=== PATIENT | female | born 1945 | race Caucasian/White ===

== ENCOUNTER 2017-04-11 09:07 | Day surgery (SDC) | payer BC ==
[2017-04-11] MEDS ORDERED: Lactated Ringers 1,000 ML IV SCH (09:15)
[2017-04-11] MEDS ORDERED: Lidocaine 2% 100 MG/5 ML Syringe IVPUSH ONE (10:45)
[2017-04-11] MEDS ORDERED: Propofol 200 MG/20 ML SDV IV ONE (10:45)
[2017-04-11] MEDS ORDERED: Midazolam 1 MG/ML 2 ML SDV IV ONE (10:45)
--- NOTE | 2017-04-11 11:10 | PCM.OPNOTE ---
- General Post-Op/Procedure Note Date of Surgery/Procedure: 04/11/17 Operative Procedure(s): egd with bx Findings: erosive esophagitis fundic gland hyperplasia Pre Op Diagnosis: dysphagia Post-Op Diagnosis: erosive esophagitis. fundic gland hyperplasia Anesthesia Technique: MAC Primary Surgeon: Guy Collins Anesthesia Provider: Johan Hunter Pathology: gastric polyps distal esophagus Complications: None Condition: Good Free Text/Narrative:: see dictation
--- NOTE | 2017-04-11 12:24 | OR ---
DATE OF OPERATION: 04/11/2017 SURGEON: Guy Collins MD PROCEDURE PERFORMED: Esophagogastroduodenoscopy with cold forceps biopsy. PREOPERATIVE DIAGNOSIS: Dysphagia. POSTOPERATIVE DIAGNOSIS: Erosive esophagitis and gastric polyps. INDICATIONS FOR PROCEDURE: This is a 71-year-old white female, who is referred with worsening dysphagia. She was offered and accepted an EGD. DESCRIPTION OF PROCEDURE: After an excellent IV sedation was administered, the bite block was inserted. The flexible endoscope was passed without difficulty down the patient's esophagus into the stomach. The stomach was insufflated, scope was passed through the pylorus to the second portion of duodenum, and slowly withdrawn. The following findings were noted. Duodenum was unremarkable. Stomach demonstrated diffuse fundic gland hyperplasia. Horse Buyer biopsies were taken. A small hiatal hernia was noted. The patient was noted to have erosive esophagitis, ulceration, and multiple circumferential biopsies were taken. The stomach was deflated, scope was removed. The patient tolerated the procedure well and was taken to recovery in good condition. /[id number] /MODL
[2017-04-11 14:40] VITALS: BP 126/66
== END 2017-04-11 12:43 | disposition home or self-care (01) ==
LOC: FB.SDS 09:07
PROVIDERS: ATTEND Surgery
DX: K31.7 Polyp of stomach and duodenum (principal); K22.10 Ulcer of esophagus without bleeding; K44.9 Diaphragmatic hernia without obstruction or gangrene; E03.9 Hypothyroidism, unspecified; F41.9 Anxiety disorder, unspecified; F32.9 Major depressive disorder, single episode, unspecified; E78.5 Hyperlipidemia, unspecified; Z88.2 Allergy status to sulfonamides; Z79.899 Other long term (current) drug therapy; Z98.890 Other specified postprocedural states
CPT/HCPCS: 43239; 88305; 88312; 88313; 88342; J2250; J2704; J7120

== ENCOUNTER 2018-06-01 18:48 | Emergency (ER) | payer BC ==
[2018-06-01] MEDS ORDERED: Morphine 10 MG/ML Syringe IM ONE (19:44)
[2018-06-01] MEDS ORDERED: diazePAM 5 MG/ML MDV IM ONE (19:44)
--- NOTE | 2018-06-01 19:59 | EDM.PDOC ---
ED HPI GENERAL MEDICAL PROBLEM - General Chief Complaint: Back Pain or Injury Stated Complaint: SCIATICA PAIN Time Seen by Provider: 06/01/18 19:54 Source of Information: Reports: Patient History Limitations: Reports: No Limitations - History of Present Illness INITIAL COMMENTS - FREE TEXT/NARRATIVE: Amy is a 72-year-old female with pain in the low back after an injury. She was in a garage sale,and stepped off a dipped area, caught herself and immediately experienced significant low back pain. Pain radiates to the left,is moderate to severe and this happened around noon.Amy has a history of chronic sciatic pain for which she goes to chiropractor. She has not taken anything today for the pain Lower back & L lower leg to L knee Pain Score (Numeric/FACES): 10 - Related Data Allergies Allergy/AdvReac Type Severity Reaction Status Date / Time Sulfa (Sulfonamide Allergy Cannot Verified 06/01/18 19:05 Antibiotics) Remember Home Meds: Home Meds Levothyroxine [Synthroid] 75 mcg PO DAILY 10/14/13 [History] Simvastatin [Zocor] 20 mg PO BEDTIME 10/14/13 [History] Venlafaxine [Effexor XR] 150 mg PO BEDTIME 10/14/13 [History] Omeprazole 40 mg PO DAILY 04/10/17 [History] Past Medical History HEENT History: Reports: None Cardiovascular History: Reports: High Cholesterol Respiratory History: Reports: Bronchitis, Recurrent, COPD, Pneumonia, Recurrent , Other (See Below) Other Respiratory History: LUNG SCARRING POST RADIATION Gastrointestinal History: Reports: GERD 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 History: Reports: Other (See Below) Other 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 History: DYSURIA 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 History: Reports: Other COLLAR CUTTER History: Musculoskeletal History: Reports: Arthritis, Back Pain, Chronic Neurological History: Reports: Other (See Below) Other Neuro History: SCIATICA, SLIPPED DISC PAIN Psychiatric History: Reports: Anxiety, Depression Endocrine/Metabolic History: Reports: Hypothyroidism, Other (See Below) Other Endocrine/Metabolic History: ABNORMAL GLUCOSE Hematologic History: Reports: None Immunologic History: Reports: None Oncologic (Cancer) History: Reports: Hodgkin's Lymphoma Dermatologic History: Reports: None - Infectious Disease History Infectious Disease History: Reports: Chicken Pox, Mumps - Past Surgical History Head Surgeries/Procedures: Reports: None HEENT Surgical History: Reports: None Cardiovascular Surgical History: Reports: None Respiratory Surgical History: Reports: None GI Surgical History: Reports: Colonoscopy, EGD Female Surgical History: Reports: Section Other Female Surgeries/Procedures: CS x 2 Neurological Surgical History: Reports: None Musculoskeletal Surgical History: Reports: Arthroscopic Knee, Knee Replacement Other Musculoskeletal Surgeries/Procedures:: L knee surgery, bilat joint surgery in feet Oncologic Surgical History: Reports: None Dermatological Surgical History: Reports: None Social & Family History - Family History Family Medical History: Noncontributory - Tobacco Use Smoking Status *Q: Never Smoker - Caffeine Use Caffeine Use: Reports: Coffee - Recreational Drug Use Recreational Drug Use: No ED ROS GENERAL - Review of Systems Review Of Systems: ROS reveals no pertinent complaints other than HPI. ED EXAM,LOWER BACK PAIN/INJURY - Physical Exam Exam: See Below Text/Narrative:: Amy appears to be in pain, exhibiting difficulty in ambulation.I noticed no deformity of the lumbar spine. There is significant tenderness in papaltion of the left paraspinal muscles, and the lumbar area and the spine has diminished range of motion. Straight leg raising test is unremarkable. She has normal strength in the next images, and deep tendon reflexes are brisk and symmetric. Exam Limited By: No Limitations General Appearance: Alert, WD/WN Course - Vital Signs Last Recorded V/S: Last Vital Signs Temp 97.0 F 06/01/18 19:00 Pulse 84 06/01/18 20:32 Resp 18 06/01/18 20:32 BP 135/99 H 06/01/18 20:32 Pulse Ox 97 06/01/18 20:32 - Orders/Labs/Meds Meds: Medications Discontinued Medications Generic Name Dose Route Start Last Admin Trade Name Radha PRN Reason Stop Dose Admin Diazepam 5 mg 06/01/18 19:44 06/01/18 20:03 Valium IM 06/01/18 19:45 5 mg ONETIME ONE Administration Hydromorphone HCl 2 mg 06/01/18 20:14 06/01/18 20:28 Dilaudid IM 06/01/18 20:15 2 mg ONETIME ONE Administration Morphine Sulfate 5 mg 06/01/18 19:44 06/01/18 20:02 Morphine IM 06/01/18 19:45 5 mg ONETIME ONE Administration Departure - Departure Time of Disposition: 21:04 Disposition: Home, Self-Care 01 Clinical Impression: Sciatica - Discharge Information Instructions: Sciatica Referrals: Lali Woods NP [Primary Care Provider] - 06/03/18 Forms: ED Department Discharge - Problem List & Annotations (1) Sciatica SNOMED Code(s): 35470416 Code(s): M54.30 - SCIATICA, UNSPECIFIED SIDE Status: Acute Current Visit : Yes Qualifiers: Laterality: left Qualified Code(s): M54.32 - Sciatica, left side - Problem List Review Problem List Initiated/Reviewed/Updated: Yes - Assessment/Plan Plan: I gave the patient Valium and morphine initially, 5 mg apiece but there was no improvement. And then given 2 mg of IM Dilaudid. I eventually sent home on Toradol 10 mg 4 times a day, and flexeril 10 mg twice a day to start tomorrow. She should see PCP on Sunday
[2018-06-01] MEDS ORDERED: HYDROmorphone 2 MG/ML SDV IM ONE (20:14)
[2018-06-01] MEDS ORDERED: Ketorolac 10 MG Tab PO ONE (21:07)
[2018-06-01] MEDS ORDERED: Cyclobenzaprine 10 MG Tab PO ONE (21:07)
[2018-06-01 22:22] VITALS: BP 119/79
== END 2018-06-01 21:28 | disposition home or self-care (01) ==
LOC: FB.ED 18:48
DX: M54.42 Lumbago with sciatica, left side (principal); J44.9 Chronic obstructive pulmonary disease, unspecified; Z88.2 Allergy status to sulfonamides; Z79.899 Other long term (current) drug therapy
CPT/HCPCS: 96372; 99283; A9270; J1170; J2270

== ENCOUNTER 2018-06-19 20:09 | Observation (INO) | payer BC ==
--- NOTE | 2018-06-19 21:31 | EDM.PDOC ---
ED HPI GENERAL MEDICAL PROBLEM - General Chief Complaint: Abdominal Pain Stated Complaint: POSS BOWEL OBSTRUCTION PER PT Time Seen by Provider: 06/19/18 20:50 Source of Information: Reports: Patient History Limitations: Reports: No Limitations - History of Present Illness INITIAL COMMENTS - FREE TEXT/NARRATIVE: Disposition very gone. Nonsmoking. 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 prednisone was started 5 days ago. Was started on oxycodone to go but stopped taking the oxycodone 6-8 days ago. And now is taking gabapentin for pain 300 mg 3 times a day this decreases the pain didn't does not resolve the pain. Her last BM was 3 days ago and she has had 2 days of loose stools. She has baseline chronic abdominal pain but she thinks abdominal pain is slightly increased. She's never had problems with abdominal pain from her Hodgkin's lymphoma. Her daughter is a nurse and gave her 2 enemas one at 6:15 and 7:00 thinking that she had constipation. She has not tried Sulfate. She has dyslipidemia, GERD, depression, erosive esophagitis treated, hypothyroidism treated. - Related Data Allergies Allergy/AdvReac Type Severity Reaction Status Date / Time baclofen Allergy Nausea and Verified 06/19/18 20:37 Vomiting Sulfa (Sulfonamide Allergy Cannot Verified 06/19/18 20:37 Antibiotics) Remember Home Meds: Home Meds Levothyroxine [Synthroid] 75 mcg PO DAILY 10/14/13 [History] Simvastatin [Zocor] 20 mg PO BEDTIME 10/14/13 [History] Venlafaxine [Effexor XR] 150 mg PO BEDTIME 10/14/13 [History] Omeprazole 40 mg PO DAILY 04/10/17 [History] Past Medical History HEENT History: Reports: None Cardiovascular History: Reports: High Cholesterol Respiratory History: Reports: Bronchitis, Recurrent, COPD, Pneumonia, Recurrent , Other (See Below) Other Respiratory History: LUNG SCARRING POST RADIATION Gastrointestinal History: Reports: GERD 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 History: Reports: Other (See Below) Other 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 History: DYSURIA MAT ROLLER History: Reports: Other MAT ROLLER History: Musculoskeletal History: Reports: Arthritis, Back Pain, Chronic Neurological History: Reports: Other (See Below) Other Neuro History: SCIATICA, SLIPPED DISC PAIN Psychiatric History: Reports: Anxiety, Depression Endocrine/Metabolic History: Reports: Hypothyroidism, Other (See Below) Other Endocrine/Metabolic History: ABNORMAL GLUCOSE Hematologic History: Reports: None Immunologic History: Reports: None Oncologic (Cancer) History: Reports: Hodgkin's Lymphoma Dermatologic History: Reports: None - Infectious Disease History Infectious Disease History: Reports: Chicken Pox, Mumps - Past Surgical History Head Surgeries/Procedures: Reports: None HEENT Surgical History: Reports: None Cardiovascular Surgical History: Reports: None Respiratory Surgical History: Reports: None GI Surgical History: Reports: Colonoscopy, EGD Female Surgical History: Reports: Section Other Female Surgeries/Procedures: CS x 2 Neurological Surgical History: Reports: None Musculoskeletal Surgical History: Reports: Arthroscopic Knee, Knee Replacement Other Musculoskeletal Surgeries/Procedures:: L knee surgery, bilat joint surgery in feet Oncologic Surgical History: Reports: None Dermatological Surgical History: Reports: None Social & Family History - Family History Family Medical History: Noncontributory - Caffeine Use Caffeine Use: Reports: Coffee ED ROS GENERAL - Review of Systems Review Of Systems: See Below Constitutional: Reports: No Symptoms HEENT: Reports: No Symptoms Respiratory: Reports: No Symptoms, Cough, Other (Intermittent dry cough but she realizes this was from her Hodgkin's radiation overload) Cardiovascular: Reports: No Symptoms, Chest Pain Endocrine: Reports: No Symptoms GI/Abdominal: Reports: Abdominal Pain, Diarrhea, Distension, Nausea : Reports: No Symptoms Musculoskeletal: Reports: No Symptoms Skin: Reports: No Symptoms Neurological: Reports: No Symptoms Psychiatric: Reports: Depression Hematologic/Lymphatic: Reports: No Symptoms Immunologic: Reports: No Symptoms ED EXAM, GI/ABD - Physical Exam Exam: See Below Text/Narrative:: A very pleasant kind warm woman who is so happy to be alive after having been treated for her Hodgkin's lymphoma Exam Limited By: No Limitations General Appearance: Alert, WD/WN, Mild Distress Eyes: Bilateral: Normal Appearance Ears: Normal External Exam, Normal Canal Nose: Normal Inspection, Normal Mucosa Throat/Mouth: Normal Inspection, Normal Lips, Normal Teeth, Normal Oropharynx, Normal Voice, No Airway Compromise Head: Atraumatic, Normocephalic Neck: Normal Inspection, Other (Tracheal tug is noted O tracheal deviation) Respiratory/Chest: No Respiratory Distress, No Accessory Muscle Use, Chest Non- Tender, Rales, Other (Bilateral posterior 50% lung crackles and rales) Cardiovascular: Normal Peripheral Pulses, Regular Rate, Rhythm, No Edema, No Gallop, No Murmur, No Rub GI/Abdominal Exam: Normal Bowel Sounds, Guarding, Tender, Other (No splenomegaly no hepatomegaly no rebound no heel tap rebound, mild distention and mild bloating ball sounds are present slightly increased) (Female) Exam: Deferred Rectal (Female) Exam: Normal Exam, Normal Rectal Tone, Deferred, Other ( Hemoccult pending) Back Exam: Normal Inspection, Full Range of Motion Extremities: Normal Inspection, Normal Range of Motion, Normal Capillary Refill , Other (Left total knee replacement scar noted and healed) Neurological: Alert, Oriented, CN II-XII Intact, Normal Cognition, Normal Gait, Normal Reflexes, No Motor/Sensory Deficits Psychiatric: Normal Affect, Other (Very kind disposition) Skin Exam: Warm, Dry, Other (Slight hand he always called to skin no scleral icterus) Lymphatic: No Adenopathy Course - Vital Signs Last Recorded V/S: Last Vital Signs Temp 36.5 C 06/19/18 20:10 Pulse 99 06/19/18 20:10 Resp 16 06/19/18 20:10 BP 146/94 H 06/19/18 20:10 Pulse Ox 98 06/19/18 20:10 - Orders/Labs/Meds Orders: Active Orders 24 hr Category Date Time Status Abdomen Pelvis w Cont [CT] Stat Exams 06/19/18 21:38 Taken UA W/MICROSCOPIC [URIN] Urgent Lab 06/19/18 22:58 Ordered Sodium Chloride 0.9% [Normal Saline] 1,000 ml Med 06/19/18 22:00 Active IV ASDIRECTED Medication Orders Sodium Chloride (Normal Saline) 1,000 mls @ 250 mls/hr IV ASDIRECTED EMMANUELLE Last Admin: 06/19/18 22:05 Dose: 250 mls/hr Labs: Laboratory Tests 06/19/18 06/19/18 06/19/18 Range/Units 21:24 21:24 21:24 WBC 13.8 H (4.5-12.0) X10-3/uL RBC 5.23 H (3.23-5.20) x10(6)uL Hgb 13.2 (11.5-15.5) g/dL Hct 40.2 (30.0-51.3) % MCV 76.9 L (80-96) fL MCH 25.3 L (27.7-33.6) pg MCHC 32.9 (32.2-35.4) g/dL RDW 15.2 (11.5-15.5) % Plt Count 499 H (125-369) X10(3)uL MPV 8.3 (7.4-10.4) fL Add Manual Diff Yes Neutrophils % (Manual) 85 H (46-82) % Band Neutrophils % 2 (0-6) % Lymphocytes % (Manual) 6 L (13-37) % Monocytes % (Manual) 7 (4-12) % Microcytosis Few Sodium 139 (135-145) mmol/L Potassium 4.3 (3.5-5.3) mmol/L Chloride 99 L (100-110) mmol/L Carbon Dioxide 27 (21-32) mmol/L BUN 25 H (7-18) mg/dL Creatinine 1.4 H (0.55-1.02) mg/dL Est Cr Clr Drug Dosing TNP Estimated GFR (MDRD) 37 L (>60) BUN/Creatinine Ratio 17.9 (9-20) Glucose 128 H (80-116) mg/dL Lactic Acid 1.0 (0.4-2.2) mmol/L Calcium 9.0 (8.6-10.2) mg/dL Total Bilirubin 0.5 (0.1-1.3) mg/dL AST 13 (5-25) IU/L ALT 21 (12-36) U/L Alkaline Phosphatase 124 H (56-112) IU/L C-Reactive Protein (0.5-0.9) mg/dL Total Protein 8.3 H (6.0-8.0) g/dL Albumin 4.0 (3.2-4.6) g/dL Globulin 4.3 g/dL Albumin/Globulin Ratio 0.9 06/19/18 Range/Units 21:24 WBC (4.5-12.0) X10-3/uL RBC (3.23-5.20) x10(6)uL Hgb (11.5-15.5) g/dL Hct (30.0-51.3) % MCV (80-96) fL MCH (27.7-33.6) pg MCHC (32.2-35.4) g/dL RDW (11.5-15.5) % Plt Count (125-369) X10(3)uL MPV (7.4-10.4) fL Add Manual Diff Neutrophils % (Manual) (46-82) % Band Neutrophils % (0-6) % Lymphocytes % (Manual) (13-37) % Monocytes % (Manual) (4-12) % Microcytosis Sodium (135-145) mmol/L Potassium (3.5-5.3) mmol/L Chloride (100-110) mmol/L Carbon Dioxide (21-32) mmol/L BUN (7-18) mg/dL Creatinine (0.55-1.02) mg/dL Est Cr Clr Drug Dosing Estimated GFR (MDRD) (>60) BUN/Creatinine Ratio (9-20) Glucose (80-116) mg/dL Lactic Acid (0.4-2.2) mmol/L Calcium (8.6-10.2) mg/dL Total Bilirubin (0.1-1.3) mg/dL AST (5-25) IU/L ALT (12-36) U/L Alkaline Phosphatase (56-112) IU/L C-Reactive Protein < 0.2 L (0.5-0.9) mg/dL Total Protein (6.0-8.0) g/dL Albumin (3.2-4.6) g/dL Globulin g/dL Albumin/Globulin Ratio Meds: Medications Generic Name Dose Route Start Last Admin Trade Name Freq PRN Reason Stop Dose Admin Sodium Chloride 1,000 mls @ 250 mls/hr 06/19/18 22:00 06/19/18 22:05 Normal Saline IV 250 mls/hr ASDIRECTED EMMANUELLE Administration Discontinued Medications Generic Name Dose Route Start Last Admin Trade Name Freq PRN Reason Stop Dose Admin Hydromorphone HCl 0.5 mg 06/19/18 21:53 06/19/18 22:07 Dilaudid IVPUSH 06/19/18 21:54 0.5 mg ONETIME ONE Administration Iopamidol 75 ml 06/19/18 22:05 06/19/18 22:30 Isovue-370 (76%) IV 06/19/18 22:06 75 ml ONETIME ONE Administration Ondansetron HCl 4 mg 06/19/18 21:55 06/19/18 22:10 Zofran IVPUSH 06/19/18 21:56 4 mg ONETIME ONE Administration - Radiology Interpretation Free Text/Narrative:: : As filled with large volumes stool in the ascending colon dilated to 7 cm. Nix is normal large thickening the colon junction with the sigmoid colon and sigmoid and rectum. Transition N: Caliber near the di descending colon with her colonoscopy enema recommended to exclude colitis stricture or mass causing colonic obstruction.stal CT Results Date: 06/19/18 CT Results Time: 23:00 Departure - Departure Time of Disposition: 23:00 (Patient has possible stricture, mass, colitis, and the distal descending colon is large amount of stool with dilation to 7 cm in the ascending colon. She has mild leukocytosis with neutrophilia. No renal stones noted plan is to hospitalize IV antibiotics Cipro and Flagyl and use 10 mL of 10 ounces of magnesium citrate and to consult surgeon for colonoscopy.) Disposition: Admitted As Inpatient 66 Clinical Impression: Abnormal CT scan, sigmoid colon, Neutrophilic leukocytosis, Colitis, Stricture of colon, Colon cancer high risk Constipation Qualifiers: Constipation type: unspecified constipation type Qualified Code(s): K59.00 - Constipation, unspecified - Discharge Information *PRESCRIPTION DRUG MONITORING PROGRAM REVIEWED*: Not Applicable *COPY OF PRESCRIPTION DRUG MONITORING REPORT IN PATIENT BJ: Not Applicable Referrals: Lali Woods NP [Primary Care Provider] - Forms: ED Department Discharge - My Orders Last 24 Hours: My Active Orders 06/19/18 21:38 Abdomen Pelvis w Cont [CT] Stat 06/19/18 22:00 Sodium Chloride 0.9% [Normal Saline] 1,000 ml IV ASDIRECTED 06/19/18 22:58 UA W/MICROSCOPIC [URIN] Urgent - Assessment/Plan Last 24 Hours: My Active Orders 06/19/18 21:38 Abdomen Pelvis w Cont [CT] Stat 06/19/18 22:00 Sodium Chloride 0.9% [Normal Saline] 1,000 ml IV ASDIRECTED 06/19/18 22:58 UA W/MICROSCOPIC [URIN] Urgent
[2018-06-19] MEDS ORDERED: HYDROmorphone 2 MG/ML SDV IVPUSH ONE (21:53)
[2018-06-19] MEDS ORDERED: Ondansetron 4 MG/2 ML SDV IVPUSH ONE (21:55)
[2018-06-19] MEDS ORDERED: Sodium Chloride 0.9% 1,000 ML IV SCH (22:00)
[2018-06-19] MEDS ORDERED: Iopamidol 755 Mg/ML 75 ML Bottle IV ONE (22:05)
[2018-06-19] MEDS ORDERED: Bisacodyl 5 MG Tab PO PRN (23:30)
[2018-06-19] MEDS ORDERED: Acetaminophen/HYDROcodone 325-5 MG Tab PO PRN (23:30)
[2018-06-19] MEDS ORDERED: Acetaminophen 325 MG Tab PO PRN (23:30)
[2018-06-19] MEDS ORDERED: Ondansetron 4 MG Tab.DIS PO PRN (23:30)
[2018-06-19] MEDS ORDERED: Ciprofloxacin in D5W 200 MG in Premix Bag 1 BAG IV SCH ×2 (23:45)
[2018-06-20] MEDS: Enoxaparin 30 MG/0.3 ML Syringe SUBCUT SCH ×2 (00:25→22:39)
[2018-06-20] MEDS: metroNIDAZOLE/Normal Saline 500 MG in Premix Bag 1 BAG IV SCH ×2 (00:27→08:46)
[2018-06-20] MEDS ORDERED: Magnesium Citrate Solution 296 ML Bottle PO ONE (00:51)
[2018-06-20] MEDS ORDERED: Ondansetron 4 MG/2 ML SDV IVPUSH PRN (02:42)
[2018-06-20] MEDS: Sodium Chloride 0.9% 1,000 ML IV SCH ×2 (05:51→21:53)
[2018-06-20] MEDS: Levothyroxine 75 MCG Tab PO SCH (08:46)
[2018-06-20] MEDS: Pantoprazole 40 MG Tab.CR PO SCH (08:46)
--- NOTE | 2018-06-20 09:06 | PCM.HP ---
H&P History of Present Illness - General Date of Service: 06/20/18 Admit Problem/Dx: Admission Diagnosis/Problem Admission Diagnosis/Problem Abdominal pain in female History Limitations: Reports: No Limitations - History of Present Illness Initial Comments - Free Text/Narative: Abd Pain x a few hours.Generalized. Associated with gagging,early satiety, vomiting. Pain is severe. She has not passed stool for 2 days. Has a history of sciatica, and has been taking oxycodone last5 days ago. She denies any fever chills chest pain or shortness of breath. No urinary symptoms. She has a history of lymphoma years ago in remission, depression anxiety stable. whole abdomen Pain Score (Numeric/FACES): 8 - Related Data Allergies/Adverse Reactions: Allergies Allergy/AdvReac Type Severity Reaction Status Date / Time baclofen Allergy Nausea and Verified 06/19/18 20:37 Vomiting Sulfa (Sulfonamide Allergy Cannot Verified 06/19/18 20:37 Antibiotics) Remember Home Medications: Home Meds Levothyroxine [Synthroid] 75 mcg PO DAILY 10/14/13 [History] Simvastatin [Zocor] 20 mg PO BEDTIME 10/14/13 [History] Venlafaxine [Effexor XR] 150 mg PO BEDTIME 10/14/13 [History] Omeprazole 40 mg PO DAILY 04/10/17 [History] Past Medical History HEENT History: Reports: None Cardiovascular History: Reports: High Cholesterol Respiratory History: Reports: Bronchitis, Recurrent, COPD, Pneumonia, Recurrent , Other (See Below) Other Respiratory History: LUNG SCARRING POST RADIATION Gastrointestinal History: Reports: GERD 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 History: Reports: Other (See Below) Other 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 History: 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/BYN History: Musculoskeletal History: Reports: Arthritis, Back Pain, Chronic Neurological History: Reports: Other (See Below) Other Neuro History: SCIATICA, SLIPPED DISC PAIN Psychiatric History: Reports: Anxiety, Depression Endocrine/Metabolic History: Reports: Hypothyroidism, Other (See Below) Other Endocrine/Metabolic History: ABNORMAL GLUCOSE Hematologic History: Reports: None Immunologic History: Reports: None Oncologic (Cancer) History: Reports: Hodgkin's Lymphoma Dermatologic History: Reports: None - Infectious Disease History Infectious Disease History: Reports: Chicken Pox, Mumps - Past Surgical History Head Surgeries/Procedures: Reports: None HEENT Surgical History: Reports: None Cardiovascular Surgical History: Reports: None Respiratory Surgical History: Reports: None GI Surgical History: Reports: Colonoscopy, EGD Female Surgical History: Reports: Section Other Female Surgeries/Procedures: CS x 2 Neurological Surgical History: Reports: None Musculoskeletal Surgical History: Reports: Arthroscopic Knee, Knee Replacement Other Musculoskeletal Surgeries/Procedures:: L knee surgery, bilat joint surgery in feet; silicon replacement both big toes Oncologic Surgical History: Reports: None Dermatological Surgical History: Reports: None Social & Family History - Family History Family Medical History: Noncontributory - Tobacco Use Smoking Status *Q: Never Smoker Second Hand Smoke Exposure: No - Caffeine Use Caffeine Use: Reports: Coffee Other Caffeine Use: 7-8 cups - Recreational Drug Use Recreational Drug Use: No H&P Review of Systems - Review of Systems: Review Of Systems: ROS reveals no pertinent complaints other than HPI. Exam - Exam Exam: See Below - Vital Signs Vital Signs: Last Vital Signs Temp 96.9 F 06/19/18 23:40 Pulse 86 06/19/18 23:40 Resp 18 06/19/18 23:40 BP 144/89 H 06/19/18 23:40 Pulse Ox 98 06/19/18 23:40 Weight: 57.516 kg - Exam General: Alert HEENT: PERRLA Neck: Supple Lungs: Clear to Auscultation Cardiovascular: Regular Rate GI/Abdominal Exam: Normal Bowel Sounds, Distended, Tender (Female) Exam: Deferred Rectal (Female) Exam: Deferred Back Exam: Normal Inspection Extremities: Normal Inspection Skin: Warm, Dry, Intact Neurological: Cranial Nerves Intact, Reflexes Equal Bilateral Neuro Extensive - Mental Status: Alert, Oriented x3, Normal Mood/Affect, Normal Cognition Neuro Extensive - Motor, Sensory, Reflexes: CN II-XII Intact, Normal Gait, Normal Reflexes - Patient Data Lab Results Last 24 hrs: Laboratory Results - last 24 hr 06/19/18 06/19/18 06/19/18 Range/Units 21:24 21:24 21:24 WBC 13.8 H (4.5-12.0) X10-3/uL RBC 5.23 H (3.23-5.20) x10(6)uL Hgb 13.2 (11.5-15.5) g/dL Hct 40.2 (30.0-51.3) % MCV 76.9 L (80-96) fL MCH 25.3 L (27.7-33.6) pg MCHC 32.9 (32.2-35.4) g/dL RDW 15.2 (11.5-15.5) % Plt Count 499 H (125-369) X10(3)uL MPV 8.3 (7.4-10.4) fL Add Manual Diff Yes Neutrophils % (Manual) 85 H (46-82) % Band Neutrophils % 2 (0-6) % Lymphocytes % (Manual) 6 L (13-37) % Monocytes % (Manual) 7 (4-12) % Microcytosis Few PT (8.7-11.1) INR (0.89-1.13) APTT (24.4-33.2) SECONDS Sodium 139 (135-145) mmol/L Potassium 4.3 (3.5-5.3) mmol/L Chloride 99 L (100-110) mmol/L Carbon Dioxide 27 (21-32) mmol/L BUN 25 H (7-18) mg/dL Creatinine 1.4 H (0.55-1.02) mg/dL Est Cr Clr Drug Dosing TNP Estimated GFR (MDRD) 37 L (>60) BUN/Creatinine Ratio 17.9 (9-20) Glucose 128 H (80-116) mg/dL Lactic Acid 1.0 (0.4-2.2) mmol/L Calcium 9.0 (8.6-10.2) mg/dL Magnesium (1.8-2.5) mg/dL Total Bilirubin 0.5 (0.1-1.3) mg/dL AST 13 (5-25) IU/L ALT 21 (12-36) U/L Alkaline Phosphatase 124 H (56-112) IU/L C-Reactive Protein (0.5-0.9) mg/dL Total Protein 8.3 H (6.0-8.0) g/dL Albumin 4.0 (3.2-4.6) g/dL Globulin 4.3 g/dL Albumin/Globulin Ratio 0.9 Urine Color (YELLOW) Urine Appearance (CLEAR) Urine pH (5.0-6.5) Ur Specific [place] (1.010-1.025) Urine Protein (NEGATIVE) mg/dL Urine Glucose (UA) (NEGATIVE) mg/dL Urine Ketones (NEGATIVE) mg/dL Urine Occult Blood (NEGATIVE) Urine Nitrite (NEGATIVE) Urine Bilirubin (NEGATIVE) Urine Urobilinogen (NEGATIVE) mg/dL Ur Leukocyte Esterase (NEGATIVE) Urine RBC (0) Urine WBC (0) Ur Squamous Epith Cells (NS,R,O) Urine Bacteria (NS) 06/19/18 06/19/18 06/20/18 Range/Units 21:24 23:28 06:10 WBC (4.5-12.0) X10-3/uL RBC (3.23-5.20) x10(6)uL Hgb (11.5-15.5) g/dL Hct (30.0-51.3) % MCV (80-96) fL MCH (27.7-33.6) pg MCHC (32.2-35.4) g/dL RDW (11.5-15.5) % Plt Count (125-369) X10(3)uL MPV (7.4-10.4) fL Add Manual Diff Neutrophils % (Manual) (46-82) % Band Neutrophils % (0-6) % Lymphocytes % (Manual) (13-37) % Monocytes % (Manual) (4-12) % Microcytosis PT 10.4 (8.7-11.1) INR 1.07 (0.89-1.13) APTT 26.0 (24.4-33.2) SECONDS Sodium (135-145) mmol/L Potassium (3.5-5.3) mmol/L Chloride (100-110) mmol/L Carbon Dioxide (21-32) mmol/L BUN (7-18) mg/dL Creatinine (0.55-1.02) mg/dL Est Cr Clr Drug Dosing Estimated GFR (MDRD) (>60) BUN/Creatinine Ratio (9-20) Glucose (80-116) mg/dL Lactic Acid (0.4-2.2) mmol/L Calcium (8.6-10.2) mg/dL Magnesium (1.8-2.5) mg/dL Total Bilirubin (0.1-1.3) mg/dL AST (5-25) IU/L ALT (12-36) U/L Alkaline Phosphatase (56-112) IU/L C-Reactive Protein < 0.2 L (0.5-0.9) mg/dL Total Protein (6.0-8.0) g/dL Albumin (3.2-4.6) g/dL Globulin g/dL Albumin/Globulin Ratio Urine Color [place] (YELLOW) Urine Appearance Clear (CLEAR) Urine pH 5.0 (5.0-6.5) Ur Specific [place] 1.020 (1.010-1.025) Urine Protein Negative (NEGATIVE) mg/dL Urine Glucose (UA) Normal (NEGATIVE) mg/dL Urine Ketones Negative (NEGATIVE) mg/dL Urine Occult Blood Negative (NEGATIVE) Urine Nitrite Negative (NEGATIVE) Urine Bilirubin Small H (NEGATIVE) Urine Urobilinogen 4 H (NEGATIVE) mg/dL Ur Leukocyte Esterase Negative (NEGATIVE) Urine RBC 0-5 (0) Urine WBC 0-5 (0) Ur Squamous Epith Cells Rare (NS,R,O) Urine Bacteria Few H (NS) 06/20/18 Range/Units 06:10 WBC (4.5-12.0) X10-3/uL RBC (3.23-5.20) x10(6)uL Hgb (11.5-15.5) g/dL Hct (30.0-51.3) % MCV (80-96) fL MCH (27.7-33.6) pg MCHC (32.2-35.4) g/dL RDW (11.5-15.5) % Plt Count (125-369) X10(3)uL MPV (7.4-10.4) fL Add Manual Diff Neutrophils % (Manual) (46-82) % Band Neutrophils % (0-6) % Lymphocytes % (Manual) (13-37) % Monocytes % (Manual) (4-12) % Microcytosis PT (8.7-11.1) INR (0.89-1.13) APTT (24.4-33.2) SECONDS Sodium (135-145) mmol/L Potassium (3.5-5.3) mmol/L Chloride (100-110) mmol/L Carbon Dioxide (21-32) mmol/L BUN (7-18) mg/dL Creatinine (0.55-1.02) mg/dL Est Cr Clr Drug Dosing Estimated GFR (MDRD) (>60) BUN/Creatinine Ratio (9-20) Glucose (80-116) mg/dL Lactic Acid (0.4-2.2) mmol/L Calcium (8.6-10.2) mg/dL Magnesium 2.5 (1.8-2.5) mg/dL Total Bilirubin (0.1-1.3) mg/dL AST (5-25) IU/L ALT (12-36) U/L Alkaline Phosphatase (56-112) IU/L C-Reactive Protein (0.5-0.9) mg/dL Total Protein (6.0-8.0) g/dL Albumin (3.2-4.6) g/dL Globulin g/dL Albumin/Globulin Ratio Urine Color (YELLOW) Urine Appearance (CLEAR) Urine pH (5.0-6.5) Ur Specific [place] (1.010-1.025) Urine Protein (NEGATIVE) mg/dL Urine Glucose (UA) (NEGATIVE) mg/dL Urine Ketones (NEGATIVE) mg/dL Urine Occult Blood (NEGATIVE) Urine Nitrite (NEGATIVE) Urine Bilirubin (NEGATIVE) Urine Urobilinogen (NEGATIVE) mg/dL Ur Leukocyte Esterase (NEGATIVE) Urine RBC (0) Urine WBC (0) Ur Squamous Epith Cells (NS,R,O) Urine Bacteria (NS) Result Diagrams: 06/19/18 21:24 06/19/18 21:24 Collin Results Last 24 hrs: Microbiology 06/19/18 21:00 Stool Occult Blood (COLLIN) - Final Stool / Feces NEGATIVE OCCULT BLOOD - Problem List (1) Constipation SNOMED Code(s): 60075657 ICD Code: K59.00 - CONSTIPATION, UNSPECIFIED Status: Acute Current Visit : Yes Qualifiers: Constipation type: unspecified constipation type Qualified Code(s): K59.00 - Constipation, unspecified (2) Sciatica SNOMED Code(s): 90127283 ICD Code: M54.30 - SCIATICA, UNSPECIFIED SIDE Status: Acute Current Visit : No Qualifiers: Laterality: left Qualified Code(s): M54.32 - Sciatica, left side Problem List Initiated/Reviewed/Updated: Yes Orders Last 24hrs: Active Orders 24 hr Category Date Time Status Patient Status [ADT] Routine ADT 06/19/18 23:30 Active Ambulate [RC] ASDIRECTED Care 06/19/18 23:30 Active May Shower [RC] ASDIRECTED Care 06/19/18 23:30 Active Notify Provider Vital Signs [RC] ASDIRECTED Care 06/19/18 23:35 Active Oxygen Therapy [RC] PRN Care 06/19/18 23:30 Active Up With Assistance [RC] ASDIRECTED Care 06/19/18 23:30 Inactive Up ad Sindy [RC] ASDIRECTED Care 06/19/18 23:30 Active Up to Chair [RC] ASDIRECTED Care 06/19/18 23:30 Active VTE/DVT Education [RC] Per Unit Routine Care 06/19/18 23:30 Active Vital Signs [RC] 08,16,00 Care 06/19/18 23:30 Active Abdomen Pelvis w Cont [CT] Stat Exams 06/19/18 21:38 Taken Acetaminophen [Tylenol] Med 06/19/18 23:30 Active 650 mg PO Q4H PRN Acetaminophen/HYDROcodone [[place] 325-5 MG] Med 06/19/18 23:30 Active 1 tab PO Q4H PRN Bisacodyl [Dulcolax] Med 06/19/18 23:30 Active 5 mg PO DAILY PRN Ciprofloxacin in D5W [Cipro in D5W 200 MG/100 ML] 200 Med 06/19/18 23:45 Active mg Premix Bag 1 bag IV Q12H Enoxaparin [Lovenox] Med 06/19/18 23:30 Active 30 mg SUBCUT Q24H Ibuprofen [Motrin] Med 06/19/18 23:30 Active 600 mg PO Q6H PRN Levothyroxine Med 06/20/18 06:00 Active 75 mcg PO DAILY@0600 Ondansetron [Zofran ODT] Med 06/19/18 23:30 Active 4 mg PO Q6H PRN Ondansetron [Zofran] Med 06/20/18 02:42 Active 4 mg IVPUSH Q6H PRN Pantoprazole [ProTONIX] Med 06/20/18 07:30 Active 40 mg PO ACBREAKFAST Simvastatin [Zocor] Med 06/20/18 21:00 Active 20 mg PO BEDTIME Sodium Chloride 0.9% [Normal Saline] 1,000 ml Med 06/19/18 22:00 Active IV ASDIRECTED Sodium Chloride 0.9% [Normal Saline] 1,000 ml Med 06/19/18 23:45 Active IV ASDIRECTED Venlafaxine [Effexor XR] Med 06/20/18 21:00 Active 150 mg PO BEDTIME metroNIDAZOLE/Normal Saline [Flagyl 500 MG in NS 100 ML Med 06/19/18 23:45 Active ] 500 mg Premix Bag 1 bag IV Q8H Resuscitation Status Routine Resus Stat 06/19/18 23:30 Ordered Medication Orders Acetaminophen (Tylenol) 650 mg PO Q4H PRN PRN Reason: Pain (Mild 1-3)/fever Hydrocodone Bitart/Acetaminophen ([place] 325-5 Mg) 1 tab PO Q4H PRN PRN Reason: Pain (moderate 4-6) Last Admin: 06/20/18 00:23 Dose: 1 tab Bisacodyl (Dulcolax) 5 mg PO DAILY PRN PRN Reason: Constipation Last Admin: 06/20/18 00:24 Dose: 5 mg Enoxaparin Sodium (Lovenox) 30 mg SUBCUT Q24H [facility] Last Admin: 06/20/18 00:25 Dose: 30 mg Sodium Chloride (Normal Saline) 1,000 mls @ 250 mls/hr IV ASDIRECTED [facility] Last Admin: 06/19/18 22:05 Dose: 250 mls/hr Ciprofloxacin/Dextrose 200 mg/ (Premix) 100 mls @ 100 mls/hr IV Q12H [facility] Last Admin: 06/20/18 01:51 Dose: 100 mls/hr Metronidazole 500 mg/ Premix 100 mls @ 100 mls/hr IV Q8H [facility] Last Admin: 06/20/18 08:46 Dose: 100 mls/hr Infusion: 06/20/18 01:27 Dose: 100 mls/hr Admin: 06/20/18 00:27 Dose: 100 mls/hr Sodium Chloride (Normal Saline) 1,000 mls @ 125 mls/hr IV ASDIRECTED [facility] Last Admin: 06/20/18 05:51 Dose: 125 mls/hr Ibuprofen (Motrin) 600 mg PO Q6H PRN PRN Reason: Pain (mild 1-3) Levothyroxine Sodium (Levothyroxine) 75 mcg PO DAILY@0600 [facility] Last Admin: 06/20/18 08:46 Dose: 75 mcg Ondansetron HCl (Zofran Odt) 4 mg PO Q6H PRN PRN Reason: nausea, able to take PO Last Admin: 06/20/18 00:25 Dose: 4 mg Ondansetron HCl (Zofran) 4 mg IVPUSH Q6H PRN PRN Reason: Nausea/Vomiting Last Admin: 06/20/18 03:03 Dose: 4 mg Pantoprazole Sodium (Protonix) 40 mg PO ACBREAKFAST EMMANULELE Last Admin: 06/20/18 08:46 Dose: 40 mg Simvastatin (Zocor) 20 mg PO BEDTIME EMMANUELLE Venlafaxine HCl (Effexor Xr) 150 mg PO BEDTIME EMMANUELLE Assessment/Plan Comment:: The CT does show a transition point even though there is ahigh amount of stool. I will keep her nothing by mouth and consult Dr. Collins.Replace Fluids
--- NOTE | 2018-06-20 09:58 | PCM.CONS ---
H&P History of Present Illness - General Date of Service: 06/20/18 Admit Problem/Dx: Admission Diagnosis/Problem Admission Diagnosis/Problem Abdominal pain in female Source of Information: Patient, Old Records - History of Present Illness Initial Comments - Free Text/Narative: 72 yo serge who apparently has been on narcotics for back pain over the past few weeks. Has had issues with abd pain, and distention. This has gotten worse over the past week. Her last bowel movement was 3 days ago and she does not recall when she last passed gas. Had a enema yesterday and had no return of stool. CT scan in the ED demonstrated marked amount of stool in the colon with what appeared to be a cut off at he distal descending colon. She had an attempt at a c scope in 2013, this was incomplete due to poor prep and she has not presented for follow up exam in this regard. whole abdomen Pain Score (Numeric/FACES): 8 - Related Data Allergies/Adverse Reactions: Allergies Allergy/AdvReac Type Severity Reaction Status Date / Time baclofen Allergy Nausea and Verified 06/19/18 20:37 Vomiting Sulfa (Sulfonamide Allergy Cannot Verified 06/19/18 20:37 Antibiotics) Remember Home Medications: Home Meds Levothyroxine [Synthroid] 75 mcg PO DAILY 10/14/13 [History] Simvastatin [Zocor] 20 mg PO BEDTIME 10/14/13 [History] Venlafaxine [Effexor XR] 150 mg PO BEDTIME 10/14/13 [History] Omeprazole 40 mg PO DAILY 04/10/17 [History] Past Medical History HEENT History: Reports: None Cardiovascular History: Reports: High Cholesterol Respiratory History: Reports: Bronchitis, Recurrent, COPD, Pneumonia, Recurrent , Other (See Below) Other Respiratory History: LUNG SCARRING POST RADIATION Gastrointestinal History: Reports: GERD 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 History: Reports: Other (See Below) 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: Musculoskeletal History: Reports: Arthritis, Back Pain, Chronic Neurological History: Reports: Other (See Below) Other Neuro History: SCIATICA, SLIPPED DISC PAIN Psychiatric History: Reports: Anxiety, Depression Endocrine/Metabolic History: Reports: Hypothyroidism, Other (See Below) Other Endocrine/Metabolic History: ABNORMAL GLUCOSE Hematologic History: Reports: None Immunologic History: Reports: None Oncologic (Cancer) History: Reports: Hodgkin's Lymphoma Dermatologic History: Reports: None - Infectious Disease History Infectious Disease History: Reports: Chicken Pox, Mumps - Past Surgical History Head Surgeries/Procedures: Reports: None HEENT Surgical History: Reports: None Cardiovascular Surgical History: Reports: None Respiratory Surgical History: Reports: None GI Surgical History: Reports: Colonoscopy, EGD Female Surgical History: Reports: Section Other Female Surgeries/Procedures: CS x 2 Neurological Surgical History: Reports: None Musculoskeletal Surgical History: Reports: Arthroscopic Knee, Knee Replacement Other Musculoskeletal Surgeries/Procedures:: L knee surgery, bilat joint surgery in feet; silicon replacement both big toes Oncologic Surgical History: Reports: None Dermatological Surgical History: Reports: None Social & Family History - Family History Family Medical History: Noncontributory - Tobacco Use Smoking Status *Q: Never Smoker Second Hand Smoke Exposure: No - Caffeine Use Caffeine Use: Reports: Coffee Other Caffeine Use: 7-8 cups - Recreational Drug Use Recreational Drug Use: No H&P Review of Systems - Review of Systems: Review Of Systems: See Below General: Reports: Fever, Chills Pulmonary: Reports: No Symptoms Cardiovascular: Reports: No Symptoms Gastrointestinal: Reports: Abdominal Pain, Constipation, Distension Exam - Exam Exam: See Below - Vital Signs Vital Signs: Last Vital Signs Temp 97.4 F 06/20/18 08:47 Pulse 87 06/20/18 08:47 Resp 16 06/20/18 08:47 BP 132/80 06/20/18 08:47 Pulse Ox 100 06/20/18 08:47 Weight: 57.516 kg - Exam General: Alert, Oriented, Cooperative Lungs: Clear to Auscultation, Normal Respiratory Effort Cardiovascular: Regular Rate, Regular Rhythm GI/Abdominal Exam: Distended, Abnormal Bowel Sounds. No: Guarding, Rigid, Rebound - Patient Data Lab Results Last 24 hrs: Laboratory Results - last 24 hr 06/19/18 06/19/18 06/19/18 Range/Units 21:24 21:24 21:24 WBC 13.8 H (4.5-12.0) X10-3/uL RBC 5.23 H (3.23-5.20) x10(6)uL Hgb 13.2 (11.5-15.5) g/dL Hct 40.2 (30.0-51.3) % MCV 76.9 L (80-96) fL MCH 25.3 L (27.7-33.6) pg MCHC 32.9 (32.2-35.4) g/dL RDW 15.2 (11.5-15.5) % Plt Count 499 H (125-369) X10(3)uL MPV 8.3 (7.4-10.4) fL Add Manual Diff Yes Neutrophils % (Manual) 85 H (46-82) % Band Neutrophils % 2 (0-6) % Lymphocytes % (Manual) 6 L (13-37) % Monocytes % (Manual) 7 (4-12) % Microcytosis Few PT (8.7-11.1) INR (0.89-1.13) APTT (24.4-33.2) SECONDS Sodium 139 (135-145) mmol/L Potassium 4.3 (3.5-5.3) mmol/L Chloride 99 L (100-110) mmol/L Carbon Dioxide 27 (21-32) mmol/L BUN 25 H (7-18) mg/dL Creatinine 1.4 H (0.55-1.02) mg/dL Est Cr Clr Drug Dosing TNP Estimated GFR (MDRD) 37 L (>60) BUN/Creatinine Ratio 17.9 (9-20) Glucose 128 H (80-116) mg/dL Lactic Acid 1.0 (0.4-2.2) mmol/L Calcium 9.0 (8.6-10.2) mg/dL Magnesium (1.8-2.5) mg/dL Total Bilirubin 0.5 (0.1-1.3) mg/dL AST 13 (5-25) IU/L ALT 21 (12-36) U/L Alkaline Phosphatase 124 H (56-112) IU/L C-Reactive Protein (0.5-0.9) mg/dL Total Protein 8.3 H (6.0-8.0) g/dL Albumin 4.0 (3.2-4.6) g/dL Globulin 4.3 g/dL Albumin/Globulin Ratio 0.9 Urine Color (YELLOW) Urine Appearance (CLEAR) Urine pH (5.0-6.5) Ur Specific [place] (1.010-1.025) Urine Protein (NEGATIVE) mg/dL Urine Glucose (UA) (NEGATIVE) mg/dL Urine Ketones (NEGATIVE) mg/dL Urine Occult Blood (NEGATIVE) Urine Nitrite (NEGATIVE) Urine Bilirubin (NEGATIVE) Urine Urobilinogen (NEGATIVE) mg/dL Ur Leukocyte Esterase (NEGATIVE) Urine RBC (0) Urine WBC (0) Ur Squamous Epith Cells (NS,R,O) Urine Bacteria (NS) 06/19/18 06/19/18 06/20/18 Range/Units 21:24 23:28 06:10 WBC (4.5-12.0) X10-3/uL RBC (3.23-5.20) x10(6)uL Hgb (11.5-15.5) g/dL Hct (30.0-51.3) % MCV (80-96) fL MCH (27.7-33.6) pg MCHC (32.2-35.4) g/dL RDW (11.5-15.5) % Plt Count (125-369) X10(3)uL MPV (7.4-10.4) fL Add Manual Diff Neutrophils % (Manual) (46-82) % Band Neutrophils % (0-6) % Lymphocytes % (Manual) (13-37) % Monocytes % (Manual) (4-12) % Microcytosis PT 10.4 (8.7-11.1) INR 1.07 (0.89-1.13) APTT 26.0 (24.4-33.2) SECONDS Sodium (135-145) mmol/L Potassium (3.5-5.3) mmol/L Chloride (100-110) mmol/L Carbon Dioxide (21-32) mmol/L BUN (7-18) mg/dL Creatinine (0.55-1.02) mg/dL Est Cr Clr Drug Dosing Estimated GFR (MDRD) (>60) BUN/Creatinine Ratio (9-20) Glucose (80-116) mg/dL Lactic Acid (0.4-2.2) mmol/L Calcium (8.6-10.2) mg/dL Magnesium (1.8-2.5) mg/dL Total Bilirubin (0.1-1.3) mg/dL AST (5-25) IU/L ALT (12-36) U/L Alkaline Phosphatase (56-112) IU/L C-Reactive Protein < 0.2 L (0.5-0.9) mg/dL Total Protein (6.0-8.0) g/dL Albumin (3.2-4.6) g/dL Globulin g/dL Albumin/Globulin Ratio Urine Color [place] (YELLOW) Urine Appearance Clear (CLEAR) Urine pH 5.0 (5.0-6.5) Ur Specific [place] 1.020 (1.010-1.025) Urine Protein Negative (NEGATIVE) mg/dL Urine Glucose (UA) Normal (NEGATIVE) mg/dL Urine Ketones Negative (NEGATIVE) mg/dL Urine Occult Blood Negative (NEGATIVE) Urine Nitrite Negative (NEGATIVE) Urine Bilirubin Small H (NEGATIVE) Urine Urobilinogen 4 H (NEGATIVE) mg/dL Ur Leukocyte Esterase Negative (NEGATIVE) Urine RBC 0-5 (0) Urine WBC 0-5 (0) Ur Squamous Epith Cells Rare (NS,R,O) Urine Bacteria Few H (NS) 06/20/18 Range/Units 06:10 WBC (4.5-12.0) X10-3/uL RBC (3.23-5.20) x10(6)uL Hgb (11.5-15.5) g/dL Hct (30.0-51.3) % MCV (80-96) fL MCH (27.7-33.6) pg MCHC (32.2-35.4) g/dL RDW (11.5-15.5) % Plt Count (125-369) X10(3)uL MPV (7.4-10.4) fL Add Manual Diff Neutrophils % (Manual) (46-82) % Band Neutrophils % (0-6) % Lymphocytes % (Manual) (13-37) % Monocytes % (Manual) (4-12) % Microcytosis PT (8.7-11.1) INR (0.89-1.13) APTT (24.4-33.2) SECONDS Sodium (135-145) mmol/L Potassium (3.5-5.3) mmol/L Chloride (100-110) mmol/L Carbon Dioxide (21-32) mmol/L BUN (7-18) mg/dL Creatinine (0.55-1.02) mg/dL Est Cr Clr Drug Dosing Estimated GFR (MDRD) (>60) BUN/Creatinine Ratio (9-20) Glucose (80-116) mg/dL Lactic Acid (0.4-2.2) mmol/L Calcium (8.6-10.2) mg/dL Magnesium 2.5 (1.8-2.5) mg/dL Total Bilirubin (0.1-1.3) mg/dL AST (5-25) IU/L ALT (12-36) U/L Alkaline Phosphatase (56-112) IU/L C-Reactive Protein (0.5-0.9) mg/dL Total Protein (6.0-8.0) g/dL Albumin (3.2-4.6) g/dL Globulin g/dL Albumin/Globulin Ratio Urine Color (YELLOW) Urine Appearance (CLEAR) Urine pH (5.0-6.5) Ur Specific [place] (1.010-1.025) Urine Protein (NEGATIVE) mg/dL Urine Glucose (UA) (NEGATIVE) mg/dL Urine Ketones (NEGATIVE) mg/dL Urine Occult Blood (NEGATIVE) Urine Nitrite (NEGATIVE) Urine Bilirubin (NEGATIVE) Urine Urobilinogen (NEGATIVE) mg/dL Ur Leukocyte Esterase (NEGATIVE) Urine RBC (0) Urine WBC (0) Ur Squamous Epith Cells (NS,R,O) Urine Bacteria (NS) Result Diagrams: 06/19/18 21:24 06/19/18 21:24 Rishi Results Last 24 hrs: Microbiology 06/19/18 21:00 Stool Occult Blood (RISHI) - Final Stool / Feces NEGATIVE OCCULT BLOOD Consult PN Assessment/Plan Procedures: Procedures ANESTH UPPER GI VISUALIZE (04/11/17) CT THORAX W/O & W/DYE (06/18/17) DIAGNOSTIC COLONOSCOPY (10/16/13) DX MAMMO INCL CAD BI (11/27/17) DX MAMMO INCL CAD UNI (11/28/17) EGD BIOPSY SINGLE/MULTIPLE (04/11/17) EMERGENCY DEPT VISIT (06/01/18) IMMUNOHISTO ANTB 1ST STAIN (04/11/17) MRI LUMBAR SPINE W/O DYE (07/24/17) SPECIAL STAINS GROUP 1 (04/11/17) SPECIAL STAINS GROUP 2 (04/11/17) THER/PROPH/DIAG INJ SC/IM (06/01/18) TISSUE EXAM BY PATHOLOGIST (04/11/17) ULTRASOUND BREAST COMPLETE (11/28/17) (1) Abnormal CT scan, sigmoid colon SNOMED Code(s): 325793448, 972981701 Code(s): R93.3 - ABNORMAL FINDINGS ON DX IMAGING OF PRT DIGESTIVE TRACT Current Visit: Yes Problem List Initiated/Reviewed/Updated: Yes My Orders Last 24 Hours: My Active Orders 06/20/18 09:51 Verify Patient Consent Obtain [RC] ASDIRECTED 06/20/18 09:52 Patient to Empty Bladder [RC] ASDIRECTED 06/20/18 Breakfast Nothing Per Oral Diet [DIET] Plan: will perform a flex sig to determine if she has an obstructive lesion. procedure and risks explained to the pt to include bleeding, infection, perforation. she asks us to proceed.
--- NOTE | 2018-06-20 10:36 | PCM.OPNOTE ---
- General Post-Op/Procedure Note Date of Surgery/Procedure: 06/20/18 Operative Procedure(s): flex sig Findings: scope to 50 cm stopped due to stool no obstruction noted at stool in rectum and sigmoid colon Pre Op Diagnosis: constipation ? narrowing a descending sigmoid junction Post-Op Diagnosis: narcotic induced constipation Anesthesia Technique: MAC Primary Surgeon: Guy Collins Anesthesia Provider: Myranda Marie Pathology: none Complications: None Condition: Good Free Text/Narrative:: Intake & Output 06/19/18 06/20/18 06/20/18 22:59 06:59 14:59 Intake Total 709 Balance 709 see dictation.
--- NOTE | 2018-06-20 11:13 | OR ---
DATE OF OPERATION: 06/20/2018 SURGEON: Guy Collins MD PROCEDURE PERFORMED: Flexible sigmoidoscopy. PREOPERATIVE DIAGNOSIS: Questionable narrowing stricture at the junction of the descending colon and sigmoid. POSTOPERATIVE DIAGNOSIS: Opioid-induced constipation. INDICATIONS FOR PROCEDURE: This is a 72-year-old white female who was admitted last night with history of abdominal distention and pain, was noted on CT scan to have a marked amount of stool on her ascending and transverse colon as well as descending colon with what appeared to be a cutoff point at the junction of the descending colon and the sigmoid. Tumor stricture could not be ruled out. The patient does have a recent history of low back pain and has been on narcotics, and she was offered and accepted a flexible sigmoidoscopy to evaluate to see if there was a tumor causing the obstruction. DESCRIPTION OF PROCEDURE: After an excellent IV sedation was administered, digital rectal exam was performed. No marked abnormality was noted. Flexible colonoscope was inserted and advanced to the descending colon at 50 cm. There was stool noted in the rectal vault, sigmoid, as well as descending colon, and the procedure was stopped at 50 cm due to the fact that we were encountering more stool. The following findings were noted: Descending colon, unremarkable. Sigmoid, unremarkable. Rectum and anus, unremarkable. There was no evidence of stricture or tumor noted as demonstrated on the CT scan. Her constipation appears to be secondary to her recent narcotic use. We are starting her on Amitiza as well as giving her soapsuds enema. /[id number] /MODL
[2018-06-20] MEDS: Lubiprostone 24 MCG Cap PO SCH ×2 (12:10→17:41)
[2018-06-20] MEDS: Gabapentin 300 MG Cap PO SCH ×2 (13:13→20:36)
[2018-06-20] MEDS: Ibuprofen 600 MG Tab PO PRN (14:56)
[2018-06-20] MEDS: Simvastatin 20 MG Tab PO SCH (20:36)
[2018-06-20] MEDS: Venlafaxine 150 MG Cap.ER PO SCH (20:36)
[2018-06-21] MEDS: Ibuprofen 600 MG Tab PO PRN (04:28)
[2018-06-21] MEDS: Levothyroxine 75 MCG Tab PO SCH (05:59)
[2018-06-21] MEDS: Sodium Chloride 0.9% 1,000 ML IV SCH (06:00)
[2018-06-21] MEDS: Lubiprostone 24 MCG Cap PO SCH ×2 (08:26→17:32)
[2018-06-21] MEDS: Pantoprazole 40 MG Tab.CR PO SCH (08:26)
[2018-06-21] MEDS: Gabapentin 300 MG Cap PO SCH ×3 (08:26→21:02)
--- NOTE | 2018-06-21 09:52 | PCM.SURGPN ---
- General Info Date of Service: 06/21/18 Functional Status: Reports: Ambulating - Review of Systems Gastrointestinal: Reports: Constipation, Flatus, Other (distention is better ) - Patient Data Vitals - Most Recent: Last Vital Signs Temp 97.9 F 06/20/18 11:15 Pulse 90 06/20/18 11:45 Resp 16 06/20/18 11:45 BP 141/80 H 06/20/18 11:45 Pulse Ox 98 06/20/18 11:45 Weight - Most Recent: 57.516 kg I&O - Last 24 Hours: Intake & Output 06/20/18 06/21/18 06/21/18 22:59 06:59 14:59 Intake Total 1032 979 Balance 1032 979 Lab Results Last 24 Hrs: Laboratory Results - last 24 hr 06/21/18 06/21/18 Range/Units 06:35 06:35 WBC 4.7 (4.5-12.0) X10-3/uL RBC 3.94 (3.23-5.20) x10(6)uL Hgb 9.8 L D (11.5-15.5) g/dL Hct 30.8 (30.0-51.3) % MCV 78.0 L (80-96) fL MCH 24.9 L (27.7-33.6) pg MCHC 31.9 L (32.2-35.4) g/dL RDW 15.4 (11.5-15.5) % Plt Count 306 (125-369) X10(3)uL MPV 8.4 (7.4-10.4) fL Neut % (Auto) 71.7 (46-82) % Lymph % (Auto) 14.4 (13-37) % [place] % (Auto) 8.4 (4-12) % Eos % (Auto) 5 (1.0-5.0) % Baso % (Auto) 1 (0-2) % Neut # (Auto) 3.4 (1.6-8.3) # Lymph # (Auto) 0.7 (0.6-5.0) # Rush # (Auto) 0.4 (0.0-1.3) # Eos # (Auto) 0.2 (0.0-0.8) # Baso # (Auto) 0.0 (0.0-0.2) # Sodium 142 (135-145) mmol/L Potassium 4.9 (3.5-5.3) mmol/L Chloride 108 D (100-110) mmol/L Carbon Dioxide 28 (21-32) mmol/L BUN 13 D (7-18) mg/dL Creatinine 1.0 (0.55-1.02) mg/dL Est Cr Clr Drug Dosing 42.06 mL/min Estimated GFR (MDRD) 55 L (>60) BUN/Creatinine Ratio 13.0 (9-20) Glucose 87 (80-116) mg/dL Calcium 8.1 L (8.6-10.2) mg/dL Total Bilirubin 0.4 (0.1-1.3) mg/dL AST 15 D (5-25) IU/L ALT 17 D (12-36) U/L Alkaline Phosphatase 89 (56-112) IU/L Total Protein 5.9 L (6.0-8.0) g/dL Albumin 2.7 L (3.2-4.6) g/dL Globulin 3.2 g/dL Albumin/Globulin Ratio 0.8 Med Orders - Current: Current Medications Acetaminophen (Tylenol) 650 mg PO Q4H PRN PRN Reason: Pain (Mild 1-3)/fever Last Admin: 06/20/18 20:32 Dose: 650 mg Hydrocodone Bitart/Acetaminophen (Tiona 325-5 Mg) 1 tab PO Q4H PRN PRN Reason: Pain (moderate 4-6) Last Admin: 06/20/18 00:23 Dose: 1 tab Bisacodyl (Dulcolax) 5 mg PO DAILY PRN PRN Reason: Constipation Last Admin: 06/20/18 00:24 Dose: 5 mg Enoxaparin Sodium (Lovenox) 30 mg SUBCUT Q24H [facility] Last Admin: 06/20/18 22:39 Dose: 30 mg Gabapentin (Neurontin) 300 mg PO TID [facility] Last Admin: 06/21/18 08:26 Dose: 300 mg Sodium Chloride (Normal Saline) 1,000 mls @ 250 mls/hr IV ASDIRECTED [facility] Last Admin: 06/19/18 22:05 Dose: 250 mls/hr Sodium Chloride (Normal Saline) 1,000 mls @ 125 mls/hr IV ASDIRECTED [facility] Last Admin: 10/05/18 06:00 Dose: 125 mls/hr Ibuprofen (Motrin) 600 mg PO Q6H PRN PRN Reason: Pain (mild 1-3) Last Admin: 06/21/18 04:28 Dose: 600 mg Levothyroxine Sodium (Levothyroxine) 75 mcg PO DAILY@0600 [facility] Last Admin: 06/21/18 05:59 Dose: 75 mcg Lubiprostone (Amitiza) 24 mcg PO BIDMEALS [facility] Last Admin: 06/21/18 08:26 Dose: 24 mcg Ondansetron HCl (Zofran Odt) 4 mg PO Q6H PRN PRN Reason: nausea, able to take PO Last Admin: 06/20/18 00:25 Dose: 4 mg Ondansetron HCl (Zofran) 4 mg IVPUSH Q6H PRN PRN Reason: Nausea/Vomiting Last Admin: 06/20/18 03:03 Dose: 4 mg Pantoprazole Sodium (Protonix) 40 mg PO ACBREAKFAST [facility] Last Admin: 06/21/18 08:26 Dose: 40 mg Simvastatin (Zocor) 20 mg PO BEDTIME [facility] Last Admin: 06/20/18 20:36 Dose: 20 mg Venlafaxine HCl (Effexor Xr) 150 mg PO BEDTIME [facility] Last Admin: 06/20/18 20:36 Dose: 150 mg Discontinued Medications Hydromorphone HCl (Dilaudid) 0.5 mg IVPUSH ONETIME ONE Stop: 06/19/18 21:54 Last Admin: 06/19/18 22:07 Dose: 0.5 mg Ciprofloxacin/Dextrose 200 mg/ (Premix) 100 mls @ 100 mls/hr IV Q12H [facility] Last Admin: 06/20/18 01:51 Dose: 100 mls/hr Metronidazole 500 mg/ Premix 100 mls @ 100 mls/hr IV Q8H [facility] Last Admin: 06/20/18 08:46 Dose: 100 mls/hr Iopamidol (Isovue-370 (76%)) 75 ml IV ONETIME ONE Stop: 06/19/18 22:06 Last Admin: 06/19/18 22:30 Dose: 75 ml Magnesium Citrate (Citrate Of Magnesia) 296 ml PO ONETIME ONE Stop: 06/20/18 00:52 Last Admin: 06/20/18 01:20 Dose: 296 ml Ondansetron HCl (Zofran) 4 mg IVPUSH ONETIME ONE Stop: 06/19/18 21:56 Last Admin: 06/19/18 22:10 Dose: 4 mg - Exam GI/Abdominal Exam: Soft, Non-Tender, No Distention - Problem List & Annotations (1) Abnormal CT scan, sigmoid colon SNOMED Code(s): 199537533, 598090711 Code(s): R93.3 - ABNORMAL FINDINGS ON DX IMAGING OF PRT DIGESTIVE TRACT Status: Acute Current Visit: Yes Annotation/Comment:: opiod induced constipation - Problem List Review Problem List Initiated/Reviewed/Updated: Yes - My Orders Last 24 Hours: Active Orders 24 hr Category Date Time Status Enema [RC] ASDIRECTED Care 06/20/18 10:28 Active Gabapentin [Neurontin] Med 06/20/18 14:00 Active 300 mg PO TID Lubiprostone [Amitiza] Med 06/20/18 12:00 Active 24 mcg PO BIDMEALS Simvastatin [Zocor] Med 06/20/18 21:00 Active 20 mg PO BEDTIME Venlafaxine [Effexor XR] Med 06/20/18 21:00 Active 150 mg PO BEDTIME Medication Orders Acetaminophen (Tylenol) 650 mg PO Q4H PRN PRN Reason: Pain (Mild 1-3)/fever Last Admin: 06/20/18 20:32 Dose: 650 mg Hydrocodone Bitart/Acetaminophen (Tiona 325-5 Mg) 1 tab PO Q4H PRN PRN Reason: Pain (moderate 4-6) Last Admin: 06/20/18 00:23 Dose: 1 tab Bisacodyl (Dulcolax) 5 mg PO DAILY PRN PRN Reason: Constipation Last Admin: 06/20/18 00:24 Dose: 5 mg Enoxaparin Sodium (Lovenox) 30 mg SUBCUT Q24H [facility] Last Admin: 06/20/18 22:39 Dose: 30 mg Admin: 06/20/18 00:25 Dose: 30 mg Gabapentin (Neurontin) 300 mg PO TID [facility] Last Admin: 06/21/18 08:26 Dose: 300 mg Admin: 06/20/18 20:36 Dose: 300 mg Admin: 06/20/18 13:13 Dose: 300 mg Sodium Chloride (Normal Saline) 1,000 mls @ 250 mls/hr IV ASDIRECTED [facility] Last Admin: 06/19/18 22:05 Dose: 250 mls/hr Sodium Chloride (Normal Saline) 1,000 mls @ 125 mls/hr IV ASDIRECTED [facility] Last Admin: 06/21/18 06:00 Dose: 125 mls/hr Infusion: 06/21/18 05:53 Dose: 125 mls/hr Admin: 06/20/18 21:53 Dose: 125 mls/hr Infusion: 06/20/18 13:51 Dose: 125 mls/hr Admin: 06/20/18 05:51 Dose: 125 mls/hr Ibuprofen (Motrin) 600 mg PO Q6H PRN PRN Reason: Pain (mild 1-3) Last Admin: 06/21/18 04:28 Dose: 600 mg Admin: 06/20/18 14:56 Dose: 600 mg Levothyroxine Sodium (Levothyroxine) 75 mcg PO DAILY@0600 [facility] Last Admin: 06/21/18 05:59 Dose: 75 mcg Admin: 06/20/18 08:46 Dose: 75 mcg Lubiprostone (Amitiza) 24 mcg PO BIDMEALS [facility] Last Admin: 06/21/18 08:26 Dose: 24 mcg Admin: 06/20/18 17:41 Dose: 24 mcg Admin: 06/20/18 12:10 Dose: 24 mcg Ondansetron HCl (Zofran Odt) 4 mg PO Q6H PRN PRN Reason: nausea, able to take PO Last Admin: 06/20/18 00:25 Dose: 4 mg Ondansetron HCl (Zofran) 4 mg IVPUSH Q6H PRN PRN Reason: Nausea/Vomiting Last Admin: 06/20/18 03:03 Dose: 4 mg Pantoprazole Sodium (Protonix) 40 mg PO ACBREAKFAST [facility] Last Admin: 06/21/18 08:26 Dose: 40 mg Admin: 06/20/18 08:46 Dose: 40 mg Simvastatin (Zocor) 20 mg PO BEDTIME [facility] Last Admin: 06/20/18 20:36 Dose: 20 mg Venlafaxine HCl (Effexor Xr) 150 mg PO BEDTIME [facility] Last Admin: 06/20/18 20:36 Dose: 150 mg - Assessment Assessment (Free Text/Narrative):: clinically better - Plan Plan (Free Text/Narrative):: would start diet miralax daily continue Amitiza. no further recommendations. will sign off.
[2018-06-21] MEDS: Polyethylene Glycol 3350 Powder 17 GM Packet PO SCH ×2 (11:10→21:04)
[2018-06-21] MEDS ORDERED: Magnesium Citrate Solution 296 ML Bottle PO ONE (11:23)
[2018-06-21] MEDS ORDERED: Sennosides 8.6 MG Tab PO PRN (11:25)
[2018-06-21] MEDS ORDERED: Polyethylene Glycol 3350 Powder 17 GM Packet PO PRN (11:26)
--- NOTE | 2018-06-21 11:33 | PCM.PN ---
- General Info Date of Service: 06/21/18 Admission Dx/Problem (Free Text): Patient is a 72-year-old female with a history of sciatica who had a severe flare about 2 or 3 weeks ago and was given a number of IV narcotics in the emergency department and then discharged home on oxycodone. She normally only has a bowel movement about every 3 days but soft and formed and easy to pass. She noticed she was having a little bit more difficulty passing her stools and the day of admission, 06/19, she developed a severe abdominal pain, distention, vomiting, fullness and feeling gaggy. She hadn't had a bowel movement for [address] scan showed lots of stool with a transition point and there was some concern about possible obstruction. The patient had a flexible sigmoidoscopy with Dr. Collins yesterday which showed only stool throughout the colon and no transition point. The patient has not yet had a bowel movement but is feeling better and having more movement of her bowels within her abdomen. Distention has improved. Pain is gone but she still feels a little bloated. She' s been walking in the halls and hearing bowel noises as well as passing gas. Functional Status: Reports: Pain Controlled, Ambulating - Patient Data Vitals - Most Recent: Last Vital Signs Temp 36.6 C 06/20/18 11:15 Pulse 90 06/20/18 11:45 Resp 16 06/20/18 11:45 BP 141/80 H 06/20/18 11:45 Pulse Ox 98 06/20/18 11:45 Weight - Most Recent: 57.516 kg I&O - Last 24 Hours: Intake & Output 06/20/18 06/21/18 06/21/18 22:59 06:59 14:59 Intake Total 1032 979 Balance 1032 979 Lab Results Last 24 Hours: Laboratory Results - last 24 hr 06/21/18 06/21/18 Range/Units 06:35 06:35 WBC 4.7 (4.5-12.0) X10-3/uL RBC 3.94 (3.23-5.20) x10(6)uL Hgb 9.8 L D (11.5-15.5) g/dL Hct 30.8 (30.0-51.3) % MCV 78.0 L (80-96) fL MCH 24.9 L (27.7-33.6) pg MCHC 31.9 L (32.2-35.4) g/dL RDW 15.4 (11.5-15.5) % Plt Count 306 (125-369) X10(3)uL MPV 8.4 (7.4-10.4) fL Neut % (Auto) 71.7 (46-82) % Lymph % (Auto) 14.4 (13-37) % [place] % (Auto) 8.4 (4-12) % Eos % (Auto) 5 (1.0-5.0) % Baso % (Auto) 1 (0-2) % Neut # (Auto) 3.4 (1.6-8.3) # Lymph # (Auto) 0.7 (0.6-5.0) # Dolores # (Auto) 0.4 (0.0-1.3) # Eos # (Auto) 0.2 (0.0-0.8) # Baso # (Auto) 0.0 (0.0-0.2) # Sodium 142 (135-145) mmol/L Potassium 4.9 (3.5-5.3) mmol/L Chloride 108 D (100-110) mmol/L Carbon Dioxide 28 (21-32) mmol/L BUN 13 D (7-18) mg/dL Creatinine 1.0 (0.55-1.02) mg/dL Est Cr Clr Drug Dosing 42.06 mL/min Estimated GFR (MDRD) 55 L (>60) BUN/Creatinine Ratio 13.0 (9-20) Glucose 87 (80-116) mg/dL Calcium 8.1 L (8.6-10.2) mg/dL Total Bilirubin 0.4 (0.1-1.3) mg/dL AST 15 D (5-25) IU/L ALT 17 D (12-36) U/L Alkaline Phosphatase 89 (56-112) IU/L Total Protein 5.9 L (6.0-8.0) g/dL Albumin 2.7 L (3.2-4.6) g/dL Globulin 3.2 g/dL Albumin/Globulin Ratio 0.8 Med Orders - Current: Current Medications Acetaminophen (Tylenol) 650 mg PO Q4H PRN PRN Reason: Pain (Mild 1-3)/fever Last Admin: 06/20/18 20:32 Dose: 650 mg Hydrocodone Bitart/Acetaminophen ([place] 325-5 Mg) 1 tab PO Q4H PRN PRN Reason: Pain (moderate 4-6) Last Admin: 06/20/18 00:23 Dose: 1 tab Bisacodyl (Dulcolax) 5 mg PO DAILY PRN PRN Reason: Constipation Last Admin: 06/20/18 00:24 Dose: 5 mg Enoxaparin Sodium (Lovenox) 30 mg SUBCUT Q24H [facility] Last Admin: 06/20/18 22:39 Dose: 30 mg Gabapentin (Neurontin) 300 mg PO TID [facility] Last Admin: 06/21/18 08:26 Dose: 300 mg Sodium Chloride (Normal Saline) 1,000 mls @ 250 mls/hr IV ASDIRECTED [facility] Last Admin: 06/19/18 22:05 Dose: 250 mls/hr Sodium Chloride (Normal Saline) 1,000 mls @ 125 mls/hr IV ASDIRECTED [facility] Last Admin: 06/21/18 06:00 Dose: 125 mls/hr Ibuprofen (Motrin) 600 mg PO Q6H PRN PRN Reason: Pain (mild 1-3) Last Admin: 06/21/18 04:28 Dose: 600 mg Levothyroxine Sodium (Levothyroxine) 75 mcg PO DAILY@0600 [facility] Last Admin: 06/21/18 05:59 Dose: 75 mcg Lubiprostone (Amitiza) 24 mcg PO BIDMEALS [facility] Last Admin: 06/21/18 08:26 Dose: 24 mcg Magnesium Citrate (Citrate Of Magnesia) 296 ml PO ONETIME ONE Stop: 06/21/18 11:24 Ondansetron HCl (Zofran Odt) 4 mg PO Q6H PRN PRN Reason: nausea, able to take PO Last Admin: 06/20/18 00:25 Dose: 4 mg Ondansetron HCl (Zofran) 4 mg IVPUSH Q6H PRN PRN Reason: Nausea/Vomiting Last Admin: 06/20/18 03:03 Dose: 4 mg Pantoprazole Sodium (Protonix) 40 mg PO ACBREAKFAST [facility] Last Admin: 06/21/18 08:26 Dose: 40 mg Polyethylene Glycol (Miralax) 17 gm PO BID [facility] Last Admin: 06/21/18 11:10 Dose: 17 gm Polyethylene Glycol (Miralax) 17 gm PO BEDTIME PRN PRN Reason: Constipation Senna (Senna) 8.6 mg PO BID PRN PRN Reason: Constipation Simvastatin (Zocor) 20 mg PO BEDTIME [facility] Last Admin: 06/20/18 20:36 Dose: 20 mg Venlafaxine HCl (Effexor Xr) 150 mg PO BEDTIME [facility] Last Admin: 06/20/18 20:36 Dose: 150 mg Discontinued Medications Hydromorphone HCl (Dilaudid) 0.5 mg IVPUSH ONETIME ONE Stop: 06/19/18 21:54 Last Admin: 06/19/18 22:07 Dose: 0.5 mg Ciprofloxacin/Dextrose 200 mg/ (Premix) 100 mls @ 100 mls/hr IV Q12H [facility] Last Admin: 06/20/18 01:51 Dose: 100 mls/hr Metronidazole 500 mg/ Premix 100 mls @ 100 mls/hr IV Q8H [facility] Last Admin: 06/20/18 08:46 Dose: 100 mls/hr Iopamidol (Isovue-370 (76%)) 75 ml IV ONETIME ONE Stop: 06/19/18 22:06 Last Admin: 06/19/18 22:30 Dose: 75 ml Magnesium Citrate (Citrate Of Magnesia) 296 ml PO ONETIME ONE Stop: 06/20/18 00:52 Last Admin: 06/20/18 01:20 Dose: 296 ml Ondansetron HCl (Zofran) 4 mg IVPUSH ONETIME ONE Stop: 06/19/18 21:56 Last Admin: 06/19/18 22:10 Dose: 4 mg - Exam General: Alert, Oriented, Cooperative, No Acute Distress HEENT: Pupils Equal Neck: Supple Lungs: Clear to Auscultation, Normal Respiratory Effort Cardiovascular: Regular Rate, Regular Rhythm, No Murmurs GI/Abdominal Exam: Normal Bowel Sounds, Soft, Distended (mildly), Tender ( mildly tender diffusely.) Extremities: No Pedal Edema Psy/Mental Status: Alert - Problem List & Annotations (1) Constipation SNOMED Code(s): 74886733 Code(s): K59.00 - CONSTIPATION, UNSPECIFIED Status: Acute Current Visit: Yes Qualifiers: Constipation type: unspecified constipation type Qualified Code(s): K59.00 - Constipation, unspecified Annotation/Comment:: Likely opiate induced. Patient started on twice a day MiraLAX, we'll start senna as well and give another dose of magnesium citrate. Assist the patient is able to empty out she can be discharged home. She is going to avoid narcotics for the time being but we did discuss that it is safe choice for her in the future as long as she is sure to use laxatives along with that and will continue the Amitiza as an outpatient which may lower her risk of recurrence with opiates. (2) Sciatica SNOMED Code(s): 22475163 Code(s): M54.30 - SCIATICA, UNSPECIFIED SIDE Status: Acute Current Visit : No Qualifiers: Laterality: left Qualified Code(s): M54.32 - Sciatica, left side Annotation/Comment:: Currently pain is adequately controlled with gabapentin. Will not add any further medications at this time. - Problem List Review Problem List Initiated/Reviewed/Updated: Yes - My Orders Last 24 Hours: My Active Orders 06/21/18 11:23 Magnesium Citrate [Citrate of Magnesia] 296 ml PO ONETIME ONE 06/21/18 11:25 Sennosides [Senna] 8.6 mg PO BID PRN 06/21/18 11:26 Polyethylene Glycol 3350 [MiraLAX] 17 gm PO BEDTIME PRN
[2018-06-21] MEDS: Venlafaxine 150 MG Cap.ER PO SCH (21:02)
[2018-06-21] MEDS: Simvastatin 20 MG Tab PO SCH (21:04)
[2018-06-22] MEDS: Enoxaparin 30 MG/0.3 ML Syringe SUBCUT SCH (00:01)
[2018-06-22] MEDS: Levothyroxine 75 MCG Tab PO SCH (06:14)
[2018-06-22] MEDS: Lubiprostone 24 MCG Cap PO SCH (07:34)
[2018-06-22] MEDS: Pantoprazole 40 MG Tab.CR PO SCH (07:34)
[2018-06-22] MEDS: Gabapentin 300 MG Cap PO SCH (09:24)
[2018-06-22] MEDS: Polyethylene Glycol 3350 Powder 17 GM Packet PO SCH (09:24)
[2018-06-22 10:09] VITALS: BP 137/83
[2018-06-22] MEDS ORDERED: Propofol 200 MG/20 ML SDV IV ONE (10:10)
--- NOTE | 2018-06-22 10:12 | PCM.DCSUM1 ---
Discharge Summary - Hospital Course Free Text/Narrative:: Date of admission: 06/19/18 Date of discharge: 06/22/18 Admission diagnosis: Opiate-induced constipation, rule out obstruction Charge diagnosis: Acute-induced constipation, no evidence of obstruction on flexible sigmoidoscopy. Consults: Gen. surgery, Dr. Collins for flex sigmoidoscopy Procedures: CT scan of the abdomen showed significant stool with a question of a transition point that was abrupt, concerning for possible obstruction secondary to malignancy. Flexible sigmoidoscopy was performed and showed only stool with no evidence of obstruction and patient tolerated this well. History of present illness: Patient is a 72-year-old female with a history of sciatica. Over the past 2-3 weeks prior to admission the patient had had a significant flare of her sciatica requiring IV narcotics in the emergency department and also oral narcotics at home. She did not start a laxative with this and gradually became more and more distended with ultimately vomiting, fullness, sensation that when she ate she would just gag things up. She had had no bowel movement for 2 days prior to admission. Presented to the emergency department and was found to have significant constipation. Hospital course: See below. Patient did well throughout her hospitalization once we were able to get her bowels moving. She was eating and drinking without any abdominal pain or distention of the time of discharge. Had had a number of bowel movements which were still formed. Discharge instructions: Patient will be discharged to home. Follow-up with primary care within a week. Will likely need laxatives adjusted again but at this point will be discharged on MiraLAX 17 g by mouth twice a day, senna 1 tab by mouth twice a day, amitiza 1 tab by mouth twice a day. - Discharge Data Discharge Date: 06/22/18 Discharge Disposition: Home, Self-Care 01 Condition: Good - Discharge Diagnosis/Problem(s) (1) Constipation SNOMED Code(s): 12683938 ICD Code: K59.00 - CONSTIPATION, UNSPECIFIED Status: Acute Current Visit : Yes Problem Details: Likely opiate induced. Good BMs overnight. Ready for discharge. Tolerating PO intake. Discharge on continued BID miralax, senna and amitiza. Follow up with PCP later this week. Qualifiers: Constipation type: unspecified constipation type Qualified Code(s): K59.00 - Constipation, unspecified (2) Sciatica SNOMED Code(s): 52900275 ICD Code: M54.30 - SCIATICA, UNSPECIFIED SIDE Status: Acute Current Visit : No Problem Details: Currently pain is adequately controlled with gabapentin. Will not add any further medications at this time. If requiring further opiates, consult with PCP re: bowel regimen. Qualifiers: Laterality: left Qualified Code(s): M54.32 - Sciatica, left side - Patient Summary/Data Operative Procedure(s) Performed: flex sig - Patient Instructions Diet: Heart Healthy Diet (High fiber.), Drink 8-10+ Glasses/Day Activity: Full Weight Bearing (walk frequently as able.) Driving: May Drive Today Notify Provider of: Nausea and/or Vomiting Other/Special Instructions: Continue 3 medicines to help keep her bowels moving. Follow-up with your primary care provider within a week for recheck on your bowel medications. If you need further opiate therapy for pain management, consult with your provider before beginning this for advice on laxative use. - Discharge Plan *PRESCRIPTION DRUG MONITORING PROGRAM REVIEWED*: Not Applicable *COPY OF PRESCRIPTION DRUG MONITORING REPORT IN PATIENT BJ: Not Applicable Prescriptions/Med Rec: Lubiprostone [Amitiza] 24 mcg PO BIDMEALS #60 cap Polyethylene Glycol 3350 [MiraLAX] 17 gm PO BID #1 bottle Sennosides [Senna] 8.6 mg PO BID #60 tablet Home Medications: Home Meds Levothyroxine [Synthroid] 75 mcg PO DAILY 10/14/13 [History] Simvastatin [Zocor] 20 mg PO BEDTIME 10/14/13 [History] Venlafaxine [Effexor XR] 150 mg PO BEDTIME 10/14/13 [History] Omeprazole 40 mg PO DAILY 04/10/17 [History] Gabapentin [Neurontin] 300 mg PO TID 06/20/18 [History] Lubiprostone [Amitiza] 24 mcg PO BIDMEALS #60 cap 06/22/18 [Rx] Polyethylene Glycol 3350 [MiraLAX] 17 gm PO BID #1 bottle 06/22/18 [Rx] Sennosides [Senna] 8.6 mg PO BID #60 tablet 06/22/18 [Rx] Patient Handouts: Constipation, Adult, [id number], Fall Prevention in Hospitals, Adult, Venous Thromboembolism Prevention Forms: ED Department Discharge Referrals: Lali Woods NP [Primary Care Provider] - - General Info Date of Service: 06/22/18 Subjective Update: At the time of discharge, patient was feeling very well. Walking in the halls without pain, no abdominal pain, no nausea, no vomiting. No shortness of breath. Had had a number of stools passing large amounts of formed stool. - Patient Data Vitals - Most Recent: Last Vital Signs Temp 36.8 C 06/22/18 00:00 Pulse 94 06/22/18 00:00 Resp 16 06/22/18 00:00 BP 134/77 06/22/18 00:00 Pulse Ox 97 06/22/18 00:00 Weight - Most Recent: 57.516 kg Med Orders - Current: Current Medications Acetaminophen (Tylenol) 650 mg PO Q4H PRN PRN Reason: Pain (Mild 1-3)/fever Last Admin: 06/20/18 20:32 Dose: 650 mg Hydrocodone Bitart/Acetaminophen (Normal 325-5 Mg) 1 tab PO Q4H PRN PRN Reason: Pain (moderate 4-6) Last Admin: 06/20/18 00:23 Dose: 1 tab Bisacodyl (Dulcolax) 5 mg PO DAILY PRN PRN Reason: Constipation Last Admin: 06/20/18 00:24 Dose: 5 mg Enoxaparin Sodium (Lovenox) 30 mg SUBCUT Q24H [facility] Last Admin: 06/22/18 00:01 Dose: 30 mg Gabapentin (Neurontin) 300 mg PO TID [facility] Last Admin: 06/22/18 09:24 Dose: 300 mg Ibuprofen (Motrin) 600 mg PO Q6H PRN PRN Reason: Pain (mild 1-3) Last Admin: 06/21/18 04:28 Dose: 600 mg Levothyroxine Sodium (Levothyroxine) 75 mcg PO DAILY@0600 [facility] Last Admin: 06/22/18 06:14 Dose: 75 mcg Lubiprostone (Amitiza) 24 mcg PO BIDMEALS [facility] Last Admin: 06/22/18 07:34 Dose: 24 mcg Ondansetron HCl (Zofran Odt) 4 mg PO Q6H PRN PRN Reason: nausea, able to take PO Last Admin: 06/20/18 00:25 Dose: 4 mg Ondansetron HCl (Zofran) 4 mg IVPUSH Q6H PRN PRN Reason: Nausea/Vomiting Last Admin: 06/20/18 03:03 Dose: 4 mg Pantoprazole Sodium (Protonix) 40 mg PO ACBREAKFAST [facility] Last Admin: 06/22/18 07:34 Dose: 40 mg Polyethylene Glycol (Miralax) 17 gm PO BID [facility] Last Admin: 06/22/18 09:24 Dose: 17 gm Senna (Senna) 8.6 mg PO BID PRN PRN Reason: Constipation Last Admin: 06/21/18 12:15 Dose: 8.6 mg Simvastatin (Zocor) 20 mg PO BEDTIME [facility] Last Admin: 06/21/18 21:04 Dose: 20 mg Venlafaxine HCl (Effexor Xr) 150 mg PO BEDTIME [facility] Last Admin: 06/21/18 21:02 Dose: 150 mg Discontinued Medications Hydromorphone HCl (Dilaudid) 0.5 mg IVPUSH ONETIME ONE Stop: 06/19/18 21:54 Last Admin: 06/19/18 22:07 Dose: 0.5 mg Sodium Chloride (Normal Saline) 1,000 mls @ 250 mls/hr IV ASDIRECTED [facility] Last Admin: 06/19/18 22:05 Dose: 250 mls/hr Ciprofloxacin/Dextrose 200 mg/ (Premix) 100 mls @ 100 mls/hr IV Q12H [facility] Last Admin: 06/20/18 01:51 Dose: 100 mls/hr Metronidazole 500 mg/ Premix 100 mls @ 100 mls/hr IV Q8H [facility] Last Admin: 06/20/18 08:46 Dose: 100 mls/hr Sodium Chloride (Normal Saline) 1,000 mls @ 125 mls/hr IV ASDIRECTED [facility] Last Admin: 06/21/18 06:00 Dose: 125 mls/hr Iopamidol (Isovue-370 (76%)) 75 ml IV ONETIME ONE Stop: 06/19/18 22:06 Last Admin: 06/19/18 22:30 Dose: 75 ml Magnesium Citrate (Citrate Of Magnesia) 296 ml PO ONETIME ONE Stop: 06/20/18 00:52 Last Admin: 06/20/18 01:20 Dose: 296 ml Magnesium Citrate (Citrate Of Magnesia) 296 ml PO ONETIME ONE Stop: 06/21/18 11:24 Last Admin: 06/21/18 12:15 Dose: 296 ml Ondansetron HCl (Zofran) 4 mg IVPUSH ONETIME ONE Stop: 06/19/18 21:56 Last Admin: 06/19/18 22:10 Dose: 4 mg - Exam General: Reports: Alert, Oriented, Cooperative, No Acute Distress HEENT: Reports: Pupils Equal, Pupils Reactive Neck: Reports: Supple Lungs: Reports: Clear to Auscultation, Normal Respiratory Effort Cardiovascular: Reports: Regular Rate, Regular Rhythm, No Murmurs GI/Abdominal Exam: Normal Bowel Sounds, Soft, Non-Tender, No Distention Extremities: No Pedal Edema
== END 2018-06-22 12:00 | disposition home or self-care (01) ==
LOC: FB.ED 20:09 → FB.MS 23:30
PROVIDERS: ADMIT Emergency Medicine; ATTEND Family Medicine
DX: K59.03 Drug induced constipation (principal); T40.2X5A Adverse effect of other opioids, initial encounter; M54.32 Sciatica, left side; E03.9 Hypothyroidism, unspecified; E78.5 Hyperlipidemia, unspecified; K21.9 Gastro-esophageal reflux disease without esophagitis; C81.90 Hodgkin lymphoma, unspecified, unspecified site; F41.9 Anxiety disorder, unspecified; F32.9 Major depressive disorder, single episode, unspecified; Z79.899 Other long term (current) drug therapy; Z88.2 Allergy status to sulfonamides; Z88.8 Allergy status to other drugs, medicaments and biological substances; Z92.3 Personal history of irradiation
CPT/HCPCS: 36415; 45378; 74177; 80053; 81001; 82272; 83605; 83735; 85025; 85610; 85730; 86140; 96361; 96374; 99285; A9270; J0744; J1170; J1650; J2405; J2704; J3490; J7030; Q9967

== ENCOUNTER 2019-04-15 07:15 | Day surgery (SDC) | payer BC ==
[~2019-04-15 07:15] MED LIST: Lactated Ringers 1,000 ML IV SCH
[2019-04-15] MEDS ORDERED: Propofol 200 MG/20 ML SDV IV ONE (07:16)
[2019-04-15] MEDS ORDERED: Lidocaine 2% 100 MG/5 ML Syringe IVPUSH ONE (07:16)
--- NOTE | 2019-04-15 08:48 | PCM.OPNOTE ---
- General Post-Op/Procedure Note Date of Surgery/Procedure: 04/15/19 Operative Procedure(s): egd with bx Findings: erosive esophagitis fundic gland hyperplasia Pre Op Diagnosis: dysphagia hx of erosive esophagitis Post-Op Diagnosis: erosive esophagitis. fundic gland hyperplasia Anesthesia Technique: MAC Primary Surgeon: Guy Collins Anesthesia Provider: Bang Webb Pathology: esophagus stomach Complications: None Condition: Good Free Text/Narrative:: see dictation
--- NOTE | 2019-04-15 10:59 | OR ---
DATE OF OPERATION: 04/15/2019 SURGEON: Guy Collins MD PROCEDURE PERFORMED: Esophagogastroduodenoscopy with cold forceps biopsy. PREOPERATIVE DIAGNOSIS: Dysphagia with personal history of erosive esophagitis. POSTOPERATIVE DIAGNOSIS: Erosive esophagitis and fundic gland hyperplasia. INDICATIONS FOR PROCEDURE: This is a 73-year-old white female who presents with the above-mentioned complaints. She has been on medication for a while, has had no change in her symptomatology, has a known history of erosive esophagitis. She was offered and accepted an EGD. DESCRIPTION OF OPERATION: After an excellent IV sedation was administered, the bite block was inserted. The flexible endoscope was passed without difficulty down the patient's esophagus into the stomach. Stomach was insufflated. Scope passed through the pylorus, second portion of duodenum and slowly withdrawn. Following findings were noted. Duodenum was unremarkable. Stomach demonstrated some fundic gland hyperplasia, which is a known condition in the patient. 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 GE junction measured approximately 35 cm and there were two tongues of what appeared to be erythema on either side of the GE junction. Biopsies were taken of both of these areas. Remainder of the esophageal exam was unremarkable. Stomach was deflated. Scope was removed. The patient tolerated the procedure well. Results by letter. /[id number] /KWAKUL
[2019-04-15 12:05] VITALS: BP 150/82; PULSE 78
== END 2019-04-15 09:40 | disposition home or self-care (01) ==
LOC: FB.SDS 07:15
PROVIDERS: ATTEND Surgery
DX: K21.0 Gastro-esophageal reflux disease with esophagitis (principal); K31.7 Polyp of stomach and duodenum; E03.9 Hypothyroidism, unspecified; F41.9 Anxiety disorder, unspecified; F32.9 Major depressive disorder, single episode, unspecified; E78.49 Other hyperlipidemia; M46.96 Unspecified inflammatory spondylopathy, lumbar region; Z87.19 Personal history of other diseases of the digestive system; Z79.899 Other long term (current) drug therapy; Z88.2 Allergy status to sulfonamides; Z88.8 Allergy status to other drugs, medicaments and biological substances
CPT/HCPCS: 43239; 88305; 88313; 88342; J2001; J2704; J7120

== ENCOUNTER 2020-03-30 09:30 | Day surgery (SDC) | payer BC ==
[~2020-03-30 09:30] MED LIST changes: -Lactated Ringers 1,000 ML IV SCH; +Sodium Chloride 0.9% 10 ML Syringe FLUSH PRN
[2020-03-30] MEDS ORDERED: Ondansetron 4 MG/2 ML SDV IVPUSH ONE (09:31)
[2020-03-30] MEDS ORDERED: Midazolam 1 MG/ML 2 ML SDV IV ONE (09:31)
[2020-03-30] MEDS ORDERED: fentaNYL 100 MCG/2 ML SDV IV ONE (09:31)
[2020-03-30] MEDS ORDERED: acetaZOLAMIDE 500 MG Cap.ER PO ONE (11:00)
[2020-03-30 11:59] VITALS: BP 122/86; PULSE 80
--- NOTE | 2020-03-30 13:01 | OR ---
DATE OF OPERATION: 03/30/2020 SURGEON: Anastasia Landa MD PREOPERATIVE DIAGNOSIS: Visually significant cataract, right eye. POSTOPERATIVE DIAGNOSIS: Visually significant cataract, right eye. PROCEDURES PERFORMED: Phacoemulsification with intraocular lens placement, right eye. ASSISTANTS: None. ANESTHESIA: Local with sedation. COMPLICATIONS: None. BLOOD LOSS: None. IMPLANTS: Wilton ACU0T0 26.0 diopter lens implanted. CDE: 2.93. DESCRIPTION OF PROCEDURE: After risks and benefits were reviewed with the patient, consent was obtained in the preoperative area, and the operative eye was marked with a surgical pen. In the preoperative area, a pledget was used to dilate the pupil consisting of a mixture of phenylephrine 10%, cyclopentolate 2%, moxifloxacin 0.5%, and bupivacaine 0.75%. The patient was taken to the operating room, where a time-out was performed, and the patient was placed under monitored anesthesia care. Topical tetracaine was used for anesthesia. The operative eye was prepped and draped for ophthalmic surgery, and the microscope was brought into position and focused. A paracentesis incision was made, followed by injection of preservative-free 1% lidocaine into the anterior chamber, followed by injection of Viscoat into the anterior chamber. A microkeratome blade was used to make a corneal limbal incision temporally. A cystotome was used to make the beginning of the capsulorrhexis, which was carried around 360 degrees in a curvilinear fashion using Utrata forceps. A Blakely cannula with BSS was used to hydrodissect and hydrodelineate the nucleus. The nucleus was removed in a divide and conquer manner using phacoemulsification. Irrigation and aspiration were used to remove the remaining cortical material. Provisc was used to inflate the capsular bag, and a pre-loaded Wilton ACU0T0 26.0 diopter lens, serial #[id number] was injected into the capsular bag. Shortly after implantation, some bleeding was noted from the ciliary body towards 3 o'clock where the leading haptic had irritated the ciliary body. The bleeding did stop by the end of the surgery. A Sinskey hook was used to position and center the lens. Next, irrigation and aspiration was used to remove any remaining viscoelastic and cortical material from the anterior chamber. BSS on a cannula was used to inflate the anterior chamber and hydrate the wound. The wound was checked and found to be watertight. 1 mg of Moxifloxacin was injected into the anterior chamber. Drapes were removed and the eye was cleaned. A drop of brimonidine 0.15% and a drop of TobraDex was placed. The eye was shielded, and the patient was taken to the recovery room in stable condition. /[id number] JHONNY/SLOAN CC: DMITRI JOY, [place] [address] [address] SRIRAM DREW, [facility]
== END 2020-03-30 12:20 | disposition home or self-care (01) ==
LOC: FB.SDS 09:30
PROVIDERS: ATTEND Ophthalmology
DX: H25.13 Age-related nuclear cataract, bilateral (principal); H35.30 Unspecified macular degeneration; H11.003 Unspecified pterygium of eye, bilateral; H02.886 Meibomian gland dysfunction of left eye, unspecified eyelid; H02.883 Meibomian gland dysfunction of right eye, unspecified eyelid; H43.819 Vitreous degeneration, unspecified eye; K22.70 Barrett's esophagus without dysplasia; K21.9 Gastro-esophageal reflux disease without esophagitis; E03.9 Hypothyroidism, unspecified; D64.9 Anemia, unspecified; R94.4 Abnormal results of kidney function studies; E78.5 Hyperlipidemia, unspecified; F41.9 Anxiety disorder, unspecified; M79.89 Other specified soft tissue disorders; Z79.899 Other long term (current) drug therapy; Z88.2 Allergy status to sulfonamides; Z88.8 Allergy status to other drugs, medicaments and biological substances
CPT/HCPCS: 00142-QZ; A9270-GY; J2250; J2405; J3010

== ENCOUNTER 2020-04-13 08:01 | Day surgery (SDC) | payer BC ==
[2020-04-13] MEDS ORDERED: fentaNYL 100 MCG/2 ML SDV IV ONE (08:02)
[2020-04-13] MEDS ORDERED: Sodium Chloride 0.9% 10 ML Syringe IV ONE (08:02)
[2020-04-13] MEDS ORDERED: Ondansetron 4 MG/2 ML SDV IVPUSH ONE (08:02)
[2020-04-13] MEDS ORDERED: Midazolam 1 MG/ML 2 ML SDV IV ONE (08:02)
[2020-04-13] MEDS ORDERED: acetaZOLAMIDE 500 MG Cap.ER PO ONE (09:30)
[2020-04-13 15:49] VITALS: BP 100/62; PULSE 87
--- NOTE | 2020-04-14 09:17 | OR ---
DATE OF OPERATION: 04/13/2020 SURGEON: Anastasia Landa MD PREOPERATIVE DIAGNOSIS: Visually significant cataract, left eye. POSTOPERATIVE DIAGNOSIS: Visually significant cataract, left eye. PROCEDURES PERFORMED: Phacoemulsification with intraocular lens placement, left eye. ASSISTANTS: None. ANESTHESIA: Local with sedation. COMPLICATIONS: None. BLOOD LOSS: None. IMPLANTS: Wilton ACU0T0, 26.0 diopter lens implanted. CDE: 3.54 DESCRIPTION OF PROCEDURE: After risks and benefits were reviewed with the patient, consent was obtained in the preoperative area, and the operative eye was marked with a surgical pen. In the preoperative area, a pledget was used to dilate the pupil consisting of a mixture of phenylephrine 10%, cyclopentolate 2%, moxifloxacin 0.5%, and bupivacaine 0.75%. The patient was taken to the operating room, where a time-out was performed, and the patient was placed under monitored anesthesia care. Topical tetracaine was used for anesthesia. The operative eye was prepped and draped for ophthalmic surgery, and the microscope was brought into position and focused. A paracentesis incision was made, followed by injection of preservative-free 1% lidocaine into the anterior chamber, followed by injection of Viscoat into the anterior chamber. A microkeratome blade was used to make a corneal limbal incision temporally. A cystotome was used to make the beginning of the capsulorrhexis, which was carried around 360 degrees in a curvilinear fashion using Utrata forceps. A Blakely cannula with BSS was used to hydrodissect and hydrodelineate the nucleus. The nucleus was removed in a divide and conquer manner using phacoemulsification. Irrigation and aspiration were used to remove the remaining cortical material. Provisc was used to inflate the capsular bag, and a pre-loaded Wilton ACU0T0, 26.0 diopter lens, serial number [id number] was injected into the capsular bag. A Sinskey hook was used to position and center the lens. Next, irrigation and aspiration was used to remove any remaining viscoelastic and cortical material from the anterior chamber. BSS on a cannula was used to inflate the anterior chamber and hydrate the wound. The wound was checked and found to be watertight. 1 mg of Moxifloxacin was injected into the anterior chamber. Drapes were removed and the eye was cleaned. A drop of brimonidine 0.15% and a drop of TobraDex was placed. The eye was shielded, and the patient was taken to the recovery room in stable condition. CC: Alana Montejo, OD [facility] [address] [place] [id number] /[id number] JHONNY/SLOAN
== END 2020-04-13 10:15 | disposition home or self-care (01) ==
LOC: FB.SDS 08:01
PROVIDERS: ATTEND Ophthalmology
DX: H25.12 Age-related nuclear cataract, left eye (principal); K22.70 Barrett's esophagus without dysplasia; K21.9 Gastro-esophageal reflux disease without esophagitis; E03.9 Hypothyroidism, unspecified; D64.9 Anemia, unspecified; R94.4 Abnormal results of kidney function studies; E78.5 Hyperlipidemia, unspecified; F41.9 Anxiety disorder, unspecified; M79.89 Other specified soft tissue disorders; H35.30 Unspecified macular degeneration; H11.003 Unspecified pterygium of eye, bilateral; H02.886 Meibomian gland dysfunction of left eye, unspecified eyelid; H02.883 Meibomian gland dysfunction of right eye, unspecified eyelid; H43.819 Vitreous degeneration, unspecified eye; Z79.899 Other long term (current) drug therapy; Z98.41 Cataract extraction status, right eye
CPT/HCPCS: 00142-QZ; A9270-GY; C1776; J2250; J2405; J3010; V2632

== ENCOUNTER 2021-01-29 09:52 | Emergency (ER) | payer BC ==
[2021-01-29 10:32] VITALS: BP 148/84; PULSE 93
--- NOTE | 2021-01-29 10:37 | EDM.PDOC ---
ED HPI GENERAL MEDICAL PROBLEM - General Chief Complaint: Head Injury Stated Complaint: HEAD INJURY W/ FALL Time Seen by Provider: 01/29/21 10:05 Source of Information: Reports: Patient History Limitations: Reports: No Limitations - History of Present Illness INITIAL COMMENTS - FREE TEXT/NARRATIVE: c/o forehead lac pt feeling well, she tripped over the corner of the rug, she struck her head on the corner of furniture has a minor HUFFMAN, no LOC - Related Data Allergies Allergy/AdvReac Type Severity Reaction Status Date / Time baclofen Allergy Nausea and Verified 01/29/21 10:30 Vomiting Sulfa (Sulfonamide Allergy Nausea and Verified 01/29/21 10:30 Antibiotics) Vomiting Home Meds: Home Meds Simvastatin [Zocor] 20 mg PO BEDTIME 10/14/13 [History] Venlafaxine [Effexor XR] 150 mg PO BEDTIME 10/14/13 [History] Levothyroxine 75 mcg PO DAILY 04/14/19 [History] Acetaminophen [Tylenol Arthritis] 650 mg PO DAILY PRN 03/29/20 [History] Esomeprazole [NexIUM] 40 mg PO DAILY 03/29/20 [History] polyethylene glycoL 3350 [MiraLAX] 17 gm PO DAILY 03/30/20 [History] Past Medical History HEENT History: Reports: Cataract, Impaired Vision Other HEENT History: VALDIVIA'S ESOPHAGUS Cardiovascular History: Reports: High Cholesterol Respiratory History: Reports: Bronchitis, Recurrent, COPD, Pneumonia, Recurrent, Other (See Below) Other Respiratory History: LUNG SCARRING POST RADIATION Gastrointestinal History: Reports: GERD Other Gastrointestinal History: VALDIVIA'S ESOPHAGUS 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 History: Reports: Renal Disease, Other (See Below) Other 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 History: DYSURIA GATE OPERATOR History: Reports: Other GATE OPERATOR History: Musculoskeletal History: Reports: Arthritis, Back Pain, Chronic Neurological History: Reports: Other (See Below) Other Neuro History: SCIATICA, SLIPPED DISC PAIN Psychiatric History: Reports: Anxiety, Depression Endocrine/Metabolic History: Reports: Hypothyroidism, Other (See Below) Other Endocrine/Metabolic History: ABNORMAL GLUCOSE Hematologic History: Reports: Anemia Immunologic History: Reports: None Oncologic (Cancer) History: Reports: Hodgkin's Lymphoma Dermatologic History: Reports: None - Infectious Disease History Infectious Disease History: Reports: Chicken Pox, Measles, Mumps - Past Surgical History Head Surgeries/Procedures: Reports: None HEENT Surgical History: Reports: None Cardiovascular Surgical History: Reports: None Respiratory Surgical History: Reports: None GI Surgical History: Reports: Colonoscopy, EGD Female Surgical History: Reports: Section Other Female Surgeries/Procedures: CS x 2 Neurological Surgical History: Reports: None Musculoskeletal Surgical History: Reports: Arthroscopic Knee, Knee Replacement Other Musculoskeletal Surgeries/Procedures:: L knee surgery, bilat joint surgery in feet; silicon replacement both big toes Oncologic Surgical History: Reports: None Dermatological Surgical History: Reports: None Social & Family History - Family History Family Medical History: No Pertinent Family History - Caffeine Use Caffeine Use: Reports: Coffee Other Caffeine Use: 7-8 cups ED ROS GENERAL - Review of Systems Review Of Systems: See Below Constitutional: Reports: No Symptoms HEENT: Reports: No Symptoms Respiratory: Reports: No Symptoms Cardiovascular: Reports: No Symptoms Endocrine: Reports: No Symptoms GI/Abdominal: Reports: No Symptoms : Reports: No Symptoms Musculoskeletal: Reports: No Symptoms Skin: Reports: Wound Neurological: Reports: Headache Psychiatric: Reports: No Symptoms Hematologic/Lymphatic: Reports: No Symptoms Immunologic: Reports: No Symptoms ED EXAM, HEAD INJURY - Physical Exam Exam: See Below Exam Limited By: No Limitations General Appearance: Alert, WD/WN, No Apparent Distress Head: Other (R forehead with 2.5 cm lac and R lac supraorbital ridge, clean, no f.b., full thickness, no bleed, little swell, no ecchymosis) Ears: Hearing Grossly Normal Throat/Mouth: Normal Voice, No Airway Compromise Neck: Non-Tender, Full Range of Motion, Normal Alignment, Normal Inspection Respiratory: No Respiratory Distress GI/Abdominal Exam: Soft, Non-Tender Extremities: Normal Inspection, Non-Tender, No Pedal Edema Neurologic: No Motor/Sensory Deficits, Alert, Normal Mood/Affect, Oriented x 3 Skin: Other (1% lido without with #30 needle local, cleaned x 12 with gauze and NS, 3-0 silk x 4 used for closure with good apposition margins) Course - Vital Signs Last Recorded V/S: Last Vital Signs Temp 36.6 C 01/29/21 09:56 Pulse 93 01/29/21 09:56 Resp 15 01/29/21 09:56 BP 148/84 H 01/29/21 09:56 Pulse Ox 100 01/29/21 09:56 - Re-Assessments/Exams Free Text/Narrative Re-Assessment/Exam: 01/29/21 10:44 here with a friend 09/05 from COVID, doing well living alone very active altho agreed to limit activities today Departure - Departure Time of Disposition: 10:32 Disposition: Home, Self-Care 01 Condition: Good Clinical Impression: Laceration of skin of forehead, Minor head injury - Discharge Information *PRESCRIPTION DRUG MONITORING PROGRAM REVIEWED*: Not Applicable *COPY OF PRESCRIPTION DRUG MONITORING REPORT IN PATIENT BJ: Not Applicable Instructions: Laceration Care, Adult, Head Injury, Adult Additional Instructions: Limit activities today. Use ice for 10 minutes 4 times a day as needed. While infection is unlikely, see a provider the same day for any increase in redness, swelling, pain, warmth, fever or drainage. See Anali in 5-6 days to remove sutures. Sepsis Event Note (ED) - Evaluation Sepsis Screening Result: No Definite Risk - Focused Exam Vital Signs: Vital Signs Temp Pulse Resp BP Pulse Ox 01/29/21 09:56 36.6 C 93 15 148/84 H 100
== END 2021-01-29 10:50 | disposition home or self-care (01) ==
LOC: FB.ED 09:52
DX: S01.81XA Laceration without foreign body of other part of head, initial encounter (principal); S09.90XA Unspecified injury of head, initial encounter; E78.00 Pure hypercholesterolemia, unspecified; J44.9 Chronic obstructive pulmonary disease, unspecified; K21.9 Gastro-esophageal reflux disease without esophagitis; Z79.899 Other long term (current) drug therapy; Z88.1 Allergy status to other antibiotic agents; Z88.2 Allergy status to sulfonamides; W01.10XA Fall on same level from slipping, tripping and stumbling with subsequent striking against unspecified object, initial encounter
CPT/HCPCS: 12011; 99282; 99283-25

== ENCOUNTER 2023-03-04 07:28 | Emergency (ER) | payer BC ==
[2023-03-04] MEDS ORDERED: Nitrofurantoin Monohydrate/Macrocrystalline 100 MG Cap PO ONE (07:29)
[2023-03-04] MEDS ORDERED: Sodium Chloride 0.9% 10 ML Syringe FLUSH PRN (07:29)
[2023-03-04 07:48] LABS: BASOPHILS ABSOLUTE AUTO 0.1 x10-3/uL (0.0-0.1); BASOPHILS PERCENT AUTO 1.1 % (0.2-1.5); EOSINOPHILS ABSOLUTE AUTO 0.1 x10-3/uL (0.0-0.8); EOSINOPHILS PERCENT AUTO 2.6 % (0.6-8.1); HEMATOCRIT 31.6 % (34.2-48.2); HEMOGLOBIN 10.5 g/dL (11.4-15.5); LYMPHOCYTES ABSOLUTE AUTO 0.6 x10-3/uL (1.0-4.4); LYMPHOCYTES PERCENT AUTO 10.7 % (18.4-52.1); MEAN CORPUSCULAR HEMOGLOBIN 29.3 pg (23.9-33.9); MEAN CORPUSCULAR HGB CONC 33.3 g/dL (31.9-34.8); MEAN PLATELET VOLUME 6.8 fL (7.1-12.4); MONOCYTES ABSOLUTE AUTO 0.5 x10-3/uL (0.3-1.0); MONOCYTES PERCENT AUTO 8.8 % (4.4-15.7); NEUTROPHILS ABSOLUTE AUTO 4.4 x10-3/uL (1.5-6.3); NEUTROPHILS PERCENT AUTO 76.8 % (30.8-76.2); PLATELET COUNT,PLT 415 x10(3)uL (151-488); RED BLOOD CELL COUNT 3.59 x10(6)uL (3.60-5.20); RED CELL DISTRIBUTION WIDTH 16.4 % (12.3-16.5); WHITE BLOOD CELL COUNT,WBC 5.7 x10-3/uL (3.0-10.3)
[2023-03-04 07:50] LABS: BLOOD UREA NITROGEN,BUN 24 mg/dL (7-18); BUN/CREATININE RATIO 21.8 (9-20); CALCIUM 9.2 mg/dL (8.6-10.2); CARBON DIOXIDE,CO2 27 mmol/L (21-32); CHLORIDE,CL 100 mmol/L (100-110); CREATININE 1.1 mg/dL (0.55-1.02); ESTIMATED GFR 52 mL/min (>60); GLUCOSE RANDOM 117 mg/dL (80-116); POTASSIUM,K 4.4 mmol/L (3.5-5.3); SODIUM,NA 135 mmol/L (135-145)
[2023-03-04 07:56] LABS: A/G RATIO 0.8; ALANINE AMINOTRANSFERASE,ALT 38 U/L (12-36); ALBUMIN 3.2 g/dL (3.2-4.6); ALKALINE PHOSPHATASE 291 IU/L (56-112); ASPARTATE AMNIOTRANSFERASE,AST 24 IU/L (5-25); BILIRUBIN TOTAL 0.6 mg/dL (0.1-1.3); PROTEIN TOTAL,TP 7.1 g/dL (6.0-8.0)
[2023-03-04] MEDS ORDERED: Sodium Chloride 0.9% 1,000 ML IV SCH (08:15)
[2023-03-04 09:21] LABS: BILIRUBIN,URINE NEGATIVE (NEGATIVE); GLUCOSE,URINE NORMAL (NORMAL); KETONES,URINE NEGATIVE (NEGATIVE); LEUKOCYTE ESTERASE,URINE LARGE (NEGATIVE); NITRITE,URINE NEGATIVE (NEGATIVE); OCCULT BLOOD,URINE NEGATIVE (NEGATIVE); PROTEIN,URINE NEGATIVE (NEGATIVE); UROBILINOGEN,URINE NORMAL (NEGATIVE)
[2023-03-04 09:22] LABS: APPEARANCE,URINE SLIGHTLY CLOUDY (CLEAR); BACTERIA,URINE MANY (NS); COLOR,URINE YELLOW (YELLOW); RBC,URINE 0-5 (0-5); SQUAMOUS EPITHELIAL CELLS,UR FEW (NS,R,O); WBC,URINE 30-40 (0-5)
[2023-03-04 11:04] VITALS: BP 127/74; PULSE 92
== END 2023-03-04 10:30 | disposition home or self-care (01) ==
LOC: FB.ED 07:28
DX: D64.9 Anemia, unspecified (principal); E03.9 Hypothyroidism, unspecified; E86.0 Dehydration; N39.0 Urinary tract infection, site not specified; E78.00 Pure hypercholesterolemia, unspecified; J44.9 Chronic obstructive pulmonary disease, unspecified; K21.9 Gastro-esophageal reflux disease without esophagitis; Z88.2 Allergy status to sulfonamides; Z88.6 Allergy status to analgesic agent; Z79.899 Other long term (current) drug therapy; Z96.641 Presence of right artificial hip joint
CPT/HCPCS: 36415; 71045; 80053; 81001; 83605; 84443; 84484; 85025; 87086; 87088; 87186; 93005; 96360; 99285; A9270; J7030

== ENCOUNTER 2023-09-11 07:51 | Emergency (ER) | payer BC ==
[2023-09-11] MEDS ORDERED: Meclizine 25 MG Tab PO ONE (08:07)
[2023-09-11 08:35] LABS: BASOPHILS ABSOLUTE AUTO 0.1 x10-3/uL (0.0-0.1); BASOPHILS PERCENT AUTO 0.9 % (0.2-1.5); BLOOD UREA NITROGEN,BUN 33 mg/dL (7-18); BUN/CREATININE RATIO 27.5 (9-20); CALCIUM 9.8 mg/dL (8.6-10.2); CARBON DIOXIDE,CO2 29 mmol/L (21-32); CHLORIDE,CL 102 mmol/L (100-110); CREATININE 1.2 mg/dL (0.55-1.02); EOSINOPHILS ABSOLUTE AUTO 0.1 x10-3/uL (0.0-0.8); EOSINOPHILS PERCENT AUTO 1.3 % (0.6-8.1); EST CRCL DRUG DOSING (CG) 32.48 mL/min; ESTIMATED GFR 47 mL/min (>60); GLUCOSE RANDOM 113 mg/dL (80-116); HEMATOCRIT 37.1 % (34.2-48.2); HEMOGLOBIN 12.7 g/dL (11.4-15.5); LYMPHOCYTES ABSOLUTE AUTO 0.6 x10-3/uL (1.0-4.4); LYMPHOCYTES PERCENT AUTO 10.3 % (18.4-52.1); MEAN CORPUSCULAR HEMOGLOBIN 29.2 pg (23.9-33.9); MEAN CORPUSCULAR HGB CONC 34.1 g/dL (31.9-34.8); MEAN CORPUSCULAR VOLUME 85.6 fL (76.7-100.5); MEAN PLATELET VOLUME 8.9 fL (7.1-12.4); MONOCYTES ABSOLUTE AUTO 0.4 x10-3/uL (0.3-1.0); MONOCYTES PERCENT AUTO 6.8 % (4.4-15.7); NEUTROPHILS ABSOLUTE AUTO 5.1 x10-3/uL (1.5-6.3); NEUTROPHILS PERCENT AUTO 80.7 % (30.8-76.2); PLATELET COUNT,PLT 236 x10(3)uL (151-488); POTASSIUM,K 4.7 mmol/L (3.5-5.3); RED BLOOD CELL COUNT 4.34 x10(6)uL (3.60-5.20); RED CELL DISTRIBUTION WIDTH 13.1 % (12.3-16.5); SODIUM,NA 137 mmol/L (135-145); WHITE BLOOD CELL COUNT,WBC 6.3 x10-3/uL (3.0-10.3)
[2023-09-11 08:38] VITALS: BP 111/91
[2023-09-11 08:41] LABS: A/G RATIO 1.2; ALANINE AMINOTRANSFERASE,ALT 20 U/L (12-36); ALBUMIN 3.9 g/dL (3.2-4.6); ALKALINE PHOSPHATASE 148 IU/L (56-112); ASPARTATE AMNIOTRANSFERASE,AST 14 IU/L (5-25); BILIRUBIN TOTAL 0.6 mg/dL (0.1-1.3); PROTEIN TOTAL,TP 7.3 g/dL (6.0-8.0)
[2023-09-11] MEDS ORDERED: Sodium Chloride 0.9% 10 ML Syringe FLUSH PRN (08:49)
[2023-09-11] MEDS ORDERED: Sodium Chloride 0.9% 1,000 ML IV SCH (09:00)
[2023-09-11 09:10] LABS: BILIRUBIN,URINE NEGATIVE (NEGATIVE); GLUCOSE,URINE NORMAL (NORMAL); KETONES,URINE NEGATIVE (NEGATIVE); LEUKOCYTE ESTERASE,URINE NEGATIVE (NEGATIVE); NITRITE,URINE NEGATIVE (NEGATIVE); OCCULT BLOOD,URINE NEGATIVE (NEGATIVE); PROTEIN,URINE NEGATIVE (NEGATIVE); UROBILINOGEN,URINE NORMAL (NEGATIVE)
[2023-09-11 09:16] LABS: APPEARANCE,URINE CLEAR (CLEAR); BACTERIA,URINE FEW (NS); COLOR,URINE YELLOW (YELLOW); SQUAMOUS EPITHELIAL CELLS,UR OCCASIONAL (NS,R,O); WBC,URINE 0-5 (0-5)
[2023-09-11 10:30] VITALS: PULSE 93
== END 2023-09-11 10:20 | disposition home or self-care (01) ==
LOC: FB.ED 07:51
DX: R42 Dizziness and giddiness (principal); E86.0 Dehydration; H53.8 Other visual disturbances; E03.9 Hypothyroidism, unspecified; J44.9 Chronic obstructive pulmonary disease, unspecified; E78.00 Pure hypercholesterolemia, unspecified; M19.90 Unspecified osteoarthritis, unspecified site; K21.9 Gastro-esophageal reflux disease without esophagitis; Z79.82 Long term (current) use of aspirin; Z79.899 Other long term (current) drug therapy
CPT/HCPCS: 36415; 80053; 81001; 84484; 85025; 93005; 96360; 99284; A9270; J7030

== ENCOUNTER 2023-10-13 04:12 | Emergency (ER) | payer BC ==
[2023-10-13 04:55] VITALS: BP 144/74; PULSE 84
[2023-10-13 05:01] LABS: BASOPHILS ABSOLUTE AUTO 0.1 x10-3/uL (0.0-0.1); BASOPHILS PERCENT AUTO 0.8 % (0.2-1.5); EOSINOPHILS ABSOLUTE AUTO 0.3 x10-3/uL (0.0-0.8); EOSINOPHILS PERCENT AUTO 3.9 % (0.6-8.1); HEMATOCRIT 34.3 % (34.2-48.2); HEMOGLOBIN 11.9 g/dL (11.4-15.5); LYMPHOCYTES ABSOLUTE AUTO 0.6 x10-3/uL (1.0-4.4); LYMPHOCYTES PERCENT AUTO 8.9 % (18.4-52.1); MEAN CORPUSCULAR HEMOGLOBIN 29.6 pg (23.9-33.9); MEAN CORPUSCULAR HGB CONC 34.8 g/dL (31.9-34.8); MEAN CORPUSCULAR VOLUME 84.9 fL (76.7-100.5); MEAN PLATELET VOLUME 8.4 fL (7.1-12.4); MONOCYTES ABSOLUTE AUTO 0.5 x10-3/uL (0.3-1.0); MONOCYTES PERCENT AUTO 7.3 % (4.4-15.7); NEUTROPHILS ABSOLUTE AUTO 5.2 x10-3/uL (1.5-6.3); NEUTROPHILS PERCENT AUTO 79.1 % (30.8-76.2); PLATELET COUNT,PLT 228 x10(3)uL (151-488); RED BLOOD CELL COUNT 4.04 x10(6)uL (3.60-5.20); RED CELL DISTRIBUTION WIDTH 13.3 % (12.3-16.5); WHITE BLOOD CELL COUNT,WBC 6.6 x10-3/uL (3.0-10.3)
[2023-10-13 05:11] LABS: BLOOD UREA NITROGEN,BUN 16 mg/dL (7-18); BUN/CREATININE RATIO 13.3 (9-20); CALCIUM 9.5 mg/dL (8.6-10.2); CARBON DIOXIDE,CO2 25 mmol/L (21-32); CHLORIDE,CL 98 mmol/L (100-110); CREATININE 1.2 mg/dL (0.55-1.02); EST CRCL DRUG DOSING (CG) 29.63 mL/min; ESTIMATED GFR 47 mL/min (>60); GLUCOSE RANDOM 114 mg/dL (80-116); POTASSIUM,K 4.1 mmol/L (3.5-5.3); SODIUM,NA 131 mmol/L (135-145)
[2023-10-13 05:17] LABS: A/G RATIO 1.1; ALANINE AMINOTRANSFERASE,ALT 25 U/L (12-36); ALBUMIN 3.5 g/dL (3.2-4.6); ALKALINE PHOSPHATASE 132 IU/L (56-112); ASPARTATE AMNIOTRANSFERASE,AST 17 IU/L (5-25); BILIRUBIN TOTAL 0.5 mg/dL (0.1-1.3); PROTEIN TOTAL,TP 6.7 g/dL (6.0-8.0)
== END 2023-10-13 06:49 | disposition home or self-care (01) ==
LOC: FB.ED 04:12
DX: K58.9 Irritable bowel syndrome, unspecified (principal); F40.248 Other situational type phobia; I10 Essential (primary) hypertension; E78.00 Pure hypercholesterolemia, unspecified; K21.9 Gastro-esophageal reflux disease without esophagitis; Z79.82 Long term (current) use of aspirin; Z79.899 Other long term (current) drug therapy; Z88.2 Allergy status to sulfonamides; Z88.6 Allergy status to analgesic agent
CPT/HCPCS: 36415; 80053; 85025; 86140; 99283

== ENCOUNTER 2025-03-24 09:42 | Emergency (ER) | payer BC ==
[2025-03-24] MEDS ORDERED: Sodium Chloride 0.9% 10 ML Syringe FLUSH PRN (10:45)
[2025-03-24 11:19] LABS: BASOPHILS ABSOLUTE AUTO 0.0 x10-3/uL (0.0-0.1); BASOPHILS PERCENT AUTO 0.5 % (0.2-1.5); EOSINOPHILS ABSOLUTE AUTO 0.1 x10-3/uL (0.0-0.8); EOSINOPHILS PERCENT AUTO 1.3 % (0.6-8.1); LYMPHOCYTES ABSOLUTE AUTO 0.8 x10-3/uL (1.0-4.4); LYMPHOCYTES PERCENT AUTO 9.5 % (18.4-52.1); MEAN PLATELET VOLUME 8.6 fL (7.1-12.4); MONOCYTES ABSOLUTE AUTO 0.5 x10-3/uL (0.3-1.0); MONOCYTES PERCENT AUTO 6.3 % (4.4-15.7); NEUTROPHILS ABSOLUTE AUTO 6.5 x10-3/uL (1.5-6.3); NEUTROPHILS PERCENT AUTO 82.4 % (30.8-76.2); PLATELET COUNT,PLT 272 x10(3)uL (151-488); RED BLOOD CELL COUNT 4.57 x10(6)uL (3.60-5.20); RED CELL DISTRIBUTION WIDTH 14.1 % (12.3-16.5); WHITE BLOOD CELL COUNT,WBC 7.9 x10-3/uL (3.0-10.3)
[2025-03-24 11:22] LABS: BLOOD UREA NITROGEN,BUN 28 mg/dL (7-18); CARBON DIOXIDE,CO2 30 mmol/L (21-32); CHLORIDE,CL 98 mmol/L (100-110); CREATININE 1.5 mg/dL (0.55-1.02); EST CRCL DRUG DOSING (CG) 22.95 mL/min; ESTIMATED GFR 35 mL/min (>60); GLUCOSE RANDOM 110 mg/dL (80-116); POTASSIUM,K 4.8 mmol/L (3.5-5.3); SODIUM,NA 137 mmol/L (135-145)
[2025-03-24 11:27] LABS: A/G RATIO 1.2; ALANINE AMINOTRANSFERASE,ALT 31 U/L (12-36); ASPARTATE AMNIOTRANSFERASE,AST 26 IU/L (5-25); BILIRUBIN TOTAL 0.8 mg/dL (0.1-1.3); PROTEIN TOTAL,TP 7.6 g/dL (6.0-8.0)
[2025-03-24] MEDS: Ketorolac 30 MG/ML SDV IVPUSH ONE (11:34)
[2025-03-24 15:08] LABS: GLUCOSE,URINE NORMAL (NORMAL); OCCULT BLOOD,URINE NEGATIVE (NEGATIVE)
[2025-03-24 15:16] LABS: SQUAMOUS EPITHELIAL CELLS,UR FEW (NS,R,O)
[2025-03-24 15:18] LABS: APPEARANCE,URINE CLOUDY (CLEAR)
[2025-03-24 15:19] LABS: AMPHETAMINES SCREEN, URINE NEGATIVE (NEGATIVE); BUPRENORPHINE SCREEN,URINE NEGATIVE (NEGATIVE); METHADONE SCREEN, URINE NEGATIVE (NEGATIVE); METHAMPHETAMINE SCREEN, URINE NEGATIVE (NEGATIVE); OXYCODONE SCREEN,URINE NEGATIVE (NEGATIVE)
[2025-03-25 12:39] VITALS: BP 131/86; PULSE 103
== END 2025-03-25 12:42 | disposition home or self-care (01) ==
LOC: FB.ED 09:42
DX: R45.851 Suicidal ideations (principal); I10 Essential (primary) hypertension; K21.9 Gastro-esophageal reflux disease without esophagitis; E03.9 Hypothyroidism, unspecified; Z88.2 Allergy status to sulfonamides; Z91.040 Latex allergy status; Z79.82 Long term (current) use of aspirin; Z79.899 Other long term (current) drug therapy; Z79.890 Hormone replacement therapy
CPT/HCPCS: 36415; 71045; 72040; 72100; 73502-LT; 80053; 80143; 80179; 80307; 81001; 84484; 85025; 86140; 87086; 87088; 87186; 87426-QW; 93005; 93010; 96361; 96374; 99284-25; 99285; A9270-GY; J1885; J7030